=== PATIENT | female | born 1985 ===

== ENCOUNTER 2020-08-22 12:55 | Outpatient (REF) | payer BC, SELFPAY ==
--- NOTE | ~2020-08-22 | US_ITS ---
EXAMINATION: US DIAGNOSTIC ULTRASOUND BREAST, RIGHT CLINICAL INFORMATION: Mastodynia. COMPARISON: Mammography of same day. TECHNIQUE: Ultrasound of the breast is performed with real-time mar scale imaging and color Doppler. FINDINGS: There is no focal suspicious finding. There is no solid mass, architectural abnormality, duct ectasia, or edema in the soft tissue planes. Results are discussed with the patient at time of visit. US/US breast RT limited IMPRESSION: No suspicious ultrasound findings of the right breast. ASSESSMENT: BI-RADS 1: Negative RECOMMENDATION: Clinical follow-up This patient's information was entered into a reminder system with a target due date for their next mammogram.
--- NOTE | ~2020-08-22 | MM_ITS ---
EXAMINATION: MM DIAGNOSTIC DIGITAL BREAST TOMOSYNTHESIS, BILATERAL CLINICAL INFORMATION: Mastodynia right breast The lifetime risk of breast cancer based on the Tyrer-Cuzick Model is 10.1%. COMPARISON: Mammography: None TECHNIQUE: Digital breast tomosynthesis is performed in both the craniocaudal and mediolateral oblique views along with computer-aided detection (CAD). Synthesized 2D images are generated from the tomosynthesis. Spot compression right mediolateral view also performed. FINDINGS: There are scattered areas of fibroglandular density (ACR BI-RADS breast composition Category b). There are no significant masses, abnormal calcifications, or other abnormalities. Targeted right breast ultrasound was performed. No abnormal cystic or solid mass was identified. No region of abnormal distal sound shadowing. No edematous change within the parenchyma is seen. Results are provided to the patient at time of visit by the technologist. MM/MM tomosynthesis diagnostic BI IMPRESSION: No specific mammographic or ultrasound findings to suggest malignancy. ASSESSMENT: BI-RADS 1: Negative RECOMMENDATION: Clinical management and follow-up. This patient's information was entered into a reminder system with a target due date for their next mammogram.
== END 2020-08-22 12:56 | disposition home or self-care (01) ==
LOC: HO.MAMMO 12:55
PROVIDERS: PCP Internal Medicine; Visit Provider Internal Medicine
DX: N64.4 Mastodynia (principal)
CPT/HCPCS: 76642; 77062; 77066

== ENCOUNTER 2024-04-26 13:00 | Outpatient (AMB) | payer BC, SELFPAY ==
[2024-04-26 13:02] VITALS: BP 110/76; BMI 29.1
--- NOTE | 2024-04-26 13:02 | MHC.PC.OV ---
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 Accompanied by: Self / Same As Patient Allergies mosquitos Allergy (Mild, Uncoded 04/26/24 13:11) Rash Medication List - Last Reconciled 04/26/24 by Kassie Osorio MD tirzepatide 2.5 mg subcut QWEEK Tobacco use date assessed: 04/26/24 Dental Screening Dental Screen Date: 04/26/24 Did you have a dental visit in the last 12 months?: Yes Did you have a dental problem in the last 6 months where you did not have access to dental care?: No Was dental information given to patient?: Patient has dentist HPI HPI Comments History of Present Illness Details This is a 38-year-old female that comes for her physical exam. Has not had a Pap smear in 4 years and will call for an appointment with OBGYN. No chest pain or shortness on breath. Has some anxiety due to work related issues. Complains of right foot pain that started after she went on vacation and fell. Still has pain in right 1st toe metatarsal. Will be referred to Podiatry and order an x-ray. [facility] Medical History (Updated 04/26/24 @ 13:27 by Kassie Osorio MD) Encounter for physical examination Obese Breast pain, right Surgical History Hx laparoscopic cholecystectomy History of surgery History of tonsillectomy History of section Family History (Updated 04/26/24 @ 13:17 by Kassie Osorio MD) Father Hypertension Mother No problems noted. Maternal Grandmother CVD (cardiovascular disease) CHF (congestive heart failure) Breast cancer, Onset Age: 68 Paternal Grandfather Cancer Social History (Updated 04/26/24 @ 13:18 by Kassie Osorio MD) Housing: House Alcohol intake: current Alcohol intake frequency: holidays/special occasions only Alcohol type: wine Patient Tobacco Use Status: Never used Tobacco e-Cigarette/Vaping Use: Never Used Second Hand Smoke Exposure: No Substance Use Type: Marijuana service: No Current occupational status: employed Current occupational exposures/hazards: No Cognitive needs: No Hearing needs: No Vision needs: No Questionnaire PHQ-9 Over the last 2 weeks, how often have you been bothered by any of the following problems? 1. Little interest or pleasure in doing things: nearly every day 2. Feeling down, depressed, or hopeless: not at all 3. Trouble falling or staying asleep, or sleeping too much: not at all 4. Feeling tired or having little energy: not at all 5. Poor appetite or overeating: not at all 6. Feeling bad about yourself - or that you are a failure or have let yourself or your family down: not at all 7. Trouble concentrating on things, such as reading the newspaper or watching television: not at all 8. Moving or speaking so slowly that other people could have noticed. Or the opposite - being so fidgety or restless that you have been moving around a lot more than usual: not at all 9. Thoughts that you would be better off or of hurting yourself in some way: not at all Total score: 3 Depression Screening Interpretation: Negative Depression Screening Done: Yes 37559 - PHQ-9 Billing: Yes Source: Developed by Drs. Josue Canada, Nunu Lowe, Chris Kelley and colleagues, with an educational jeniffer from [employer]. Thrive Questionnaire Date Thrive assessed: 04/26/24 I am a: Patient What is your living situation today?: I have a steady place to live Within the past 12 months, did the food you bought not last and you didn't have the money to get more?: Never true Within the past 12 months, did you worry whether your food would run out before you got money to buy more?: Never true Do you have trouble paying for medicines?: No Do you have trouble getting transportation to medical appointments?: No Do you have trouble paying your heating and electricity bill?: No Do you have trouble taking care of your child, family member or friend?: No Do you have trouble with day-to-day activities such as bathing, preparing meals, shopping, managing finances, etc.?: No Are you currently unemployed and looking for a job?: No Are you interested in more education?: No Please select the resources that you would like help with: None Currently or been in a relationship where the following occur: No concerns reported THRIVE Score: 0 AUDIT C Alcohol Use Questionnaire (AUDIT-C) 1. How often do you have a drink containing alcohol?: 2-4 times a month 2. How many drinks containing alcohol do you have on a typical day when you are drinking?: 1 or 2 3. How often do you have six or more drinks on one occasion?: Never Total Score: 2 Score Reviewed/Action Taken: No TRENT-7 AMB Questionnaire TRENT-7 Date TRENT - 7 assessed: 04/26/24 Feeling nervous, anxious, or on edge: 1 = Several days Not being able to stop or control worryin = Several days Worrying too much about different things: 1 = Several days Trouble relaxin = Several days Being so restless that it is hard to sit still: 1 = Several days Becoming easily annoyed or irritable: 2 = More than half the days Feeling afraid as if something awful might happen: 1 = Several days Total TRENT-7 score (0-4 normal; 5-9 mild; 10-14 moderate; 15-21 severe): 8 Source: Developed by Drs. Josue Canada, Nunu Lowe, Chris Kelley and colleagues, with an educational jeniffer from [employer]. TRENT-7 Assessment Billing TRENT-7 Assessment Tool: TRENT-7 Assessment 52479 Review of Systems Const All systems reviewed & are unremarkable except as noted in HPI and below Card Denies chest pain at rest, Denies chest pain with activity, Denies edema, Denies irregular heart rhythm, Denies claudication, Denies dyspnea, Denies dyspnea on exertion, Denies orthopnea, Denies paroxysmal nocturnal dyspnea and Denies slow heart rate Resp Denies cough, Denies dyspnea and Denies dyspnea on exertion GI Denies abdominal pain, Denies change in bowel habits, Denies excessive flatus, Denies nausea and Denies vomiting Physical exam (Primary Care) Vital Signs: Last Vital Signs BP 110/76 04/26/24 13:02 BMI result Body Mass Index 29.1 Tobacco/Smoking Status: Tobacco use Status Tobacco use date assessed 04/26/24 04/26/24 13:07 Patient Tobacco Use Status Never used Tobacco 04/26/24 13:18 e-Cigarette/Vaping Use Never Used 04/26/24 13:18 PHQ-9: PHQ-9 Score PHQ-9: Total score 0 04/26/24 13:20 Depression Screening Interpretation: Negative Thrive Assessment: Date of Thrive Assessment Date Thrive assessed 04/26/24 04/26/24 13:07 Currently or been in a relationship where the following occur: No concerns reported [facility] Head: Yes normal to inspection, Yes normocephalic and Yes atraumatic Ears: external ears normal Eyes General: appearance normal, both eyes and all related structures Eyelids: Yes eyelids normal Conjunctivae: conjunctivae normal Neck Neck: Yes normal visual inspection and Yes supple Resp Effort & Inspection: normal respiratory effort Auscultation: clear to auscultation bilaterally Cardio Jugular venous distension: no JVD Rate: regular rate Rhythm: regular rhythm Heart sounds: S1 normal heart sound present and S2 normal heart sound present GI Inspection: Yes normal to inspection Palpation (GI): Soft to palpation and nontender Auscultation: normal bowel sounds Skin General skin exam: no rashes or lesions noted Neuro General: no focal motor deficits Extrem General: Yes full ROM Right lower extremity: foot Details: tenderness Location: of the great toe Location: at the MTP joint Psych Appearance: grossly normal Office Procedures Flu Questionnaire Does the patient have a severe egg allergy?: No Immunizations Fluarix Triv [id number] (PF) 45 mcg (15 mcg x 3)/0.5 mL IM syringe Performing Provider: Kassie Osorio MD [facility] Documented (not given) by: JERSEY Rose on 04/26/24 13:07 Reason Not Given: Patient Refused Coding Level of Care Code Est Pt Level 3 (02724) Est Pt Prev Care 18-39y(99474) Diagnoses Encounter for physical examination Z00.00 Right foot pain M79.671 Additional Codes TRENT-7 Assessment Billing - TRENT-7 Assessment Tool: TRENT-7 Assessment 48177 ([id number]) Time Spent (min) 33 Assessment & Plan Assessment & Plan (1) Encounter for physical examination: Code(s): Z00.00 - Encounter for general adult medical examination without abnormal findings Category: Medical Plan: Repeat in a year. (2) Right foot pain: Code(s): M79.671 - Pain in right foot Category: Medical Plan: X-ray ordered. Referred to Podiatry. Orders: Orders Influenza 2311-1612 Immunization Today Z23 - Encounter for immunization XR foot RT 2V Today M79.671 - Pain in right foot Lipid Panel Today E78.5 - Hyperlipidemia, unspecified, Z00.00 - Encounter for general adult medical examination without abnormal findings Comprehensive [place]. Panel Fast Today Z00.00 - Encounter for general adult medical examination without abnormal findings Referrals Podiatry Referral M79.671 - Pain in right foot
== END 2024-04-26 13:31 | disposition home or self-care (01) ==
PROVIDERS: PCP Internal Medicine; Visit Provider Internal Medicine
DX: Z00.00 Encounter for general adult medical examination without abnormal findings (principal); M79.671 Pain in right foot

== ENCOUNTER → 2024-04-26 13:00 | Outpatient (BNVA) | payer BC, SELFPAY | PROVIDERS: PCP Internal Medicine; Visit Provider Internal Medicine | DX: Z00.01 Encounter for general adult medical examination with abnormal findings (principal); M79.671 Pain in right foot; Z28.21 Immunization not carried out because of patient refusal | CPT/HCPCS: 90471; 96127 ==

== ENCOUNTER 2024-05-10 08:02 | Outpatient (REF) | payer BC, SELFPAY ==
--- NOTE | ~2024-05-10 | XR_ITS ---
EXAMINATION: XR FOOT, RIGHT CLINICAL INFORMATION: Right foot pain, first digit. COMPARISON: None available. TECHNIQUE: AP, lateral, and oblique views of the right foot. FINDINGS: No fracture, dislocation, or suspicious focal bone abnormality. Moderate hallux valgus present with mild prominence of the medial eminence of the first metatarsal head consistent with bunion formation. There is mild overlying soft tissue swelling suggestive of painful bunion. Remainder the bones of the forefoot, midfoot, and hindfoot are normally aligned with no acute finding. Small to moderate sized plantar and small dorsal calcaneal spurs. Normal plantar arch. Normal soft tissues otherwise. XR/XR foot RT 2V IMPRESSION: 1. Moderate hallux valgus with bunion formation and mild overlying soft tissue swelling first MTP joint. 2. Small to moderate plantar and small dorsal calcaneal spurs. 3. Otherwise, normal exam. Electronically signed by: Júnior Billingsley MD 06/01/2024 10:20 AM ROBIN
[2024-05-10 09:51] LABS: Alanine Aminotransferase 15 U/L (0-31); Albumin Level 4.5 g/dL (3.5-5.0); Alkaline Phosphatase 69 U/L (39-117); Anion Gap 11 (12-20); Aspartate Amino Transferase 19 U/L (5-31); Bilirubin Total 0.8 mg/dL (0.0-1.0); Blood Urea Nitrogen 11 mg/dL (9-16); Calcium 9.6 mg/dL (8.4-10.2); Carbon Dioxide 27 mmol/L (22-29); Chloride 106 mmol/L (96-108); Cholesterol 172 mg/dL (<200); Estimated Glomerular Filt Rate > 60; Glucose Fasting 80 mg/dL (60-99); HDL Cholesterol 54 mg/dL (>40); LDL Cholesterol Calculated 109 mg/dL (<100); Potassium 3.8 mmol/L (3.3-5.1); Sodium 140 mmol/L (135-145); Total Protein 7.1 g/dL (6.5-8.0); Triglycerides 45 mg/dL (<150)
== END 2024-05-10 08:03 | disposition home or self-care (01) ==
LOC: HO.XRAY 08:02
PROVIDERS: PCP Internal Medicine; Visit Provider Internal Medicine
DX: Z00.00 Encounter for general adult medical examination without abnormal findings (principal); E78.5 Hyperlipidemia, unspecified; M79.671 Pain in right foot
CPT/HCPCS: 36415; 73620; 80053; 80061

== ENCOUNTER → 2024-05-10 08:42 | Outpatient (BNV) | payer BC, SELFPAY | PROVIDERS: PCP Internal Medicine; Visit Provider Radiology Diagnostic Radiology | DX: M79.671 Pain in right foot (principal) | CPT/HCPCS: 73620 ==

== ENCOUNTER 2024-07-25 09:11 | Outpatient (AMB) | payer BC, SELFPAY ==
--- NOTE | 2024-07-25 09:13 | MHC.PC.OV ---
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 Required: No Accompanied by: Self / Same As Patient Allergies mosquitos Allergy (Mild, Uncoded 07/25/24 09:35) Rash Medication List - Last Reconciled 07/25/24 by Kassie Osorio MD tirzepatide 2.5 mg subcut QWEEK Tobacco use date assessed: 07/25/24 Dental Screening Dental Screen Date: 07/25/24 Did you have a dental visit in the last 12 months?: Yes Did you have a dental problem in the last 6 months where you did not have access to dental care?: No Was dental information given to patient?: Patient has dentist HPI HPI Comments History of Present Illness Details The patient is a 38-year-old female presenting with bilateral axillary lumps and breast pain. The patient reports experiencing soreness in the breast area for some time, which has gradually progressed. She attributes some of the discomfort to wearing sports bras consistently, even while sleeping, due to her active lifestyle and physical activities. The symptoms have been persistent, and the patient has noted the pain continues even when wearing different types of bras. While the pain has somewhat subsided with a new bra, it remains bothersome. The patient denies any nipple discharge but reports the presence of lumps under both armpits, which have been painful enough to prevent her from resting her arms at her sides. These lumps have been recurring, taking approximately two weeks to subside and often develop post-placement in the axillary region. A recent prior mammogram conducted in 2020 was reported as normal. The patient suspects her symptoms may be related to possibly an allergic reaction to an irritant, such as deodorant. Currently, the condition remains an inconvenience, impacting her overall comfort. 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 [facility] Medical History (Updated 07/25/24 @ 09:53 by Kassie Osorio MD) Encounter for physical examination Obese Breast pain, right Surgical History Hx laparoscopic cholecystectomy History of surgery History of tonsillectomy History of section Family History Father Hypertension Mother No problems noted. Maternal Grandmother CVD (cardiovascular disease) CHF (congestive heart failure) Breast cancer, Onset Age: 68 Paternal Grandfather Cancer Social History Housing: House Alcohol intake: current Alcohol intake frequency: holidays/special occasions only Alcohol type: wine Patient Tobacco Use Status: Never used Tobacco e-Cigarette/Vaping Use: Never Used Second Hand Smoke Exposure: No Substance Use Type: Marijuana service: No Current occupational status: employed Current occupational exposures/hazards: No Cognitive needs: No Hearing needs: No Vision needs: No Questionnaire PHQ-9 Over the last 2 weeks, how often have you been bothered by any of the following problems? 1. Little interest or pleasure in doing things: several days 2. Feeling down, depressed, or hopeless: not at all 3. Trouble falling or staying asleep, or sleeping too much: not at all 4. Feeling tired or having little energy: not at all 5. Poor appetite or overeating: not at all 6. Feeling bad about yourself - or that you are a failure or have let yourself or your family down: not at all 7. Trouble concentrating on things, such as reading the newspaper or watching television: not at all 8. Moving or speaking so slowly that other people could have noticed. Or the opposite - being so fidgety or restless that you have been moving around a lot more than usual: not at all 9. Thoughts that you would be better off or of hurting yourself in some way: not at all Total score: 1 Depression Screening Interpretation: Negative Depression Screening Done: Yes 43626 - PHQ-9 Billing: Yes Source: Developed by Drs. Josue Canada, Nunu Lowe, Chris Kelley and colleagues, with an educational jeniffer from [employer]. Thrive Questionnaire Date Thrive assessed: 07/25/24 I am a: Patient What is your living situation today?: I have a steady place to live Within the past 12 months, did the food you bought not last and you didn't have the money to get more?: Never true Within the past 12 months, did you worry whether your food would run out before you got money to buy more?: Never true Do you have trouble paying for medicines?: No Do you have trouble getting transportation to medical appointments?: No Do you have trouble paying your heating and electricity bill?: No Do you have trouble taking care of your child, family member or friend?: No Do you have trouble with day-to-day activities such as bathing, preparing meals, shopping, managing finances, etc.?: No Are you currently unemployed and looking for a job?: No Are you interested in more education?: No Please select the resources that you would like help with: None Currently or been in a relationship where the following occur: No concerns reported THRIVE Score: 0 AUDIT C Alcohol Use Questionnaire (AUDIT-C) 1. How often do you have a drink containing alcohol?: 2-4 times a month 2. How many drinks containing alcohol do you have on a typical day when you are drinking?: 1 or 2 3. How often do you have six or more drinks on one occasion?: Never Total Score: 2 Score Reviewed/Action Taken: No TRENT-7 AMB Questionnaire TRENT-7 Date TRENT - 7 assessed: 07/25/24 Feeling nervous, anxious, or on edge: 1 = Several days Not being able to stop or control worryin = Several days Worrying too much about different things: 1 = Several days Trouble relaxin = Several days Being so restless that it is hard to sit still: 1 = Several days Becoming easily annoyed or irritable: 1 = Several days Feeling afraid as if something awful might happen: 1 = Several days Total TRENT-7 score (0-4 normal; 5-9 mild; 10-14 moderate; 15-21 severe): 7 Source: Developed by Drs. Josue Canada, Nunu Lowe, Chris Kelley and colleagues, with an educational jeniffer from [employer]. TRENT-7 Assessment Billing TRENT-7 Assessment Tool: TRENT-7 Assessment 18973 Review of Systems Const Details: - Breast: Reports persistent soreness and pain. - Skin: Reports bilateral axillary lumps and associated pain. - General: Denies current use of tobacco. Physical exam (Primary Care) Vital Signs: Last Vital Signs BP 110/72 07/25/24 09:14 BMI result Body Mass Index 29.3 Tobacco/Smoking Status: Tobacco use Status Tobacco use date assessed 07/25/24 07/25/24 09:21 Patient Tobacco Use Status Never used Tobacco 07/25/24 09:14 e-Cigarette/Vaping Use Never Used 07/25/24 09:14 PHQ-9: PHQ-9 Score PHQ-9: Total score 1 07/25/24 09:37 Depression Screening Interpretation: Negative Thrive Assessment: Date of Thrive Assessment Date Thrive assessed 07/25/24 07/25/24 09:14 Currently or been in a relationship where the following occur: No concerns reported Const Other: General: No confusion Chest: Right axillary mass at 11 o'clock Respiratory: Normal respiratory effort, clear to auscultation bilaterally Cardiovascular: No jugular venous distension, regular rate, regular rhythm, S1 normal heart sound present and S2 normal heart sound present Extremities: Full ROM Psychology: Grossly normal Coding Level of Care Code Est Pt Level 3 (73890) Complex EM visit Add On G2211 Diagnoses Mass of axillary tail of right breast N63.31 Additional Codes TRENT-7 Assessment Billing - TRENT-7 Assessment Tool: TRENT-7 Assessment 91312 ([id number]) PHQ-9 - 18388 - PHQ-9 Billing: Yes ([id number]) Time Spent (min) 19 Assessment & Plan Assessment & Plan (1) Mass of axillary tail of right breast: Code(s): N63.31 - Unspecified lump in axillary tail of the right breast Category: Medical Plan - Discuss differential diagnoses for axillary lumps, including benign causes such as lymphadenopathy versus possible allergic or irritant reactions. - Recommend monitoring lumps for significant changes in size, consistency, or duration. - Consider potential irritants such as deodorants or fabrics; suggest a trial of hypoallergenic products and monitor reaction. - Follow up with additional imaging or specialist referral if lumps persist or new symptoms develop, despite lifestyle adjustments. Patient was informed and verbally consented to the use of an ambient scribe for clinic note documentation during this visit. We discussed the patient's symptoms of breast pain and axillary lumps at length. I provided reassurance regarding the normal mammogram result from 2020. We reviewed the potential causes of the axillary lumps, emphasizing common benign causes, and agreed on trying hypoallergenic deodorant as a preventative measure. I advised monitoring the lumps and breast pain and explained the importance of follow-up if symptoms persist or worsen. The patient understands the current plan and the need for further evaluation if significant changes occur. Orders: Orders US breast RT complete Today N63.31 - Unspecified lump in axillary tail of the right breast MM diagnostic mammo BI Today N63.31 - Unspecified lump in axillary tail of the right breast Patient Instructions: - Monitor symptoms and lumps for changes in size or pain. - Consider hypoallergenic deodorant to reduce potential irritation. - Wear supportive bras that alleviate pressure and discomfort. - Contact the office if symptoms worsen or new symptoms arise. - Schedule regular follow-ups as needed to review symptoms and adjust the plan. - Report any lumps that do not resolve or if there is new nipple discharge.
[2024-07-25 09:14] VITALS: BP 110/72; BMI 29.3
== END 2024-07-25 09:53 | disposition home or self-care (01) ==
PROVIDERS: PCP Internal Medicine; Visit Provider Internal Medicine
DX: N63.31 Unspecified lump in axillary tail of the right breast (principal)

== ENCOUNTER → 2024-07-25 09:11 | Outpatient (BNVA) | payer BC, SELFPAY | PROVIDERS: PCP Internal Medicine; Visit Provider Internal Medicine | DX: N63.31 Unspecified lump in axillary tail of the right breast (principal) | CPT/HCPCS: 96127 ==

== ENCOUNTER 2024-08-30 10:02 | Outpatient (REF) | payer BC, SELFPAY ==
--- OUTSIDE RECORDS SUMMARY | 2024-08-30 13:38 | XMS_ITS | Clinical Summary ---
Author Organization [facility] Address [address] [place] [phone] Phone Care Team Providers Care Records Assistant Name Role Phone Unavailable Primary Care Provider [...] of 2 - 13+ 2-dose series) 12/06/2000 DTaP,Tdap,and Td Vaccines (8 - Td or [...]
--- OUTSIDE RECORDS SUMMARY | 2024-08-30 13:38 | XMS_ITS | Clinical Summary ---
Author Organization 175 [facility] Address [address] [place] [address] Phone Care Team Providers Care Bend Up Name Role Phone Kassie Osorio MD Primary Care Provider [phone] Social History Tobacco Use Types Packs/Day Years Used Date Smoking Tobacco: Never Assessed Comments Unknown Sex and Gender Information Value Date Recorded Sex Assigned at Not on file Legal Sex Female 4:48 PM EST Gender Identity Not on file Sexual Orientation Not on file Plan of Treatment Upcoming Encounters Date Type Department Care Team ([facility] Contact Info) Description 08/31/2024 10:30 AM EST Office Visit Orthopedic Surgery [place] [phone] [phone] Lebron Zaldivar, DPM [address] [address] Health Maintenance Due Date Last Done Comments [...] patient's age to complete this topic Insurance [facility]) Care Teams Bend Up Relationship Specialty Start Date End Date Kassie Osorio MD [address] [place] [address] , [address] [facility] Physician Associ D/B/A: [facility] [place] PCP - General Internal Medicine 06/06/24
--- OUTSIDE RECORDS SUMMARY | 2024-08-30 13:38 | XMS_ITS | Encounter Summary ---
Author Organization [facility] Address [address] [place] [phone] Phone Care Team Providers Care Rice Farmworker Name Role Phone Mamie Hewitt NP Primary Care Provider Paty johnston Encounter Details Date Type Department Care Team (Late st Contact Info) Description 03/04/2017 Conversion Encounter [facility] - [address] [address] Social History Tobacco Use Types Packs/Day Years [...] on filedocumented in this encounter Care Teams Rice Farmworker Relationship Specialty Start Date End Date Mamie Hewitt NP PCP - General 02/26/17 10/27/22 documented as of this encounter
[2024-08-30 17:59] LABS: Bacterial Vaginosis PCR NEGATIVE (Negative); Candida Group PCR NOT DETECTED (Not Detect); Candida glab krusei PCR NOT DETECTED (Not Detect); Trichomonas vaginalis PCR NOT DETECTED (Not Detect)
[2024-08-31 06:48] LABS: CT PCR NOT DETECTED (Not Detect.); NG PCR NOT DETECTED (Not Detect.)
== END 2024-08-30 10:03 | disposition home or self-care (01) ==
LOC: HO.LNP 10:02
PROVIDERS: PCP Internal Medicine; Visit Provider Physician Assistant
DX: N89.8 Other specified noninflammatory disorders of vagina (principal)
CPT/HCPCS: 81515; 87491; 87591

== ENCOUNTER 2024-08-30 10:02 | Outpatient (AMB) | payer BC, SELFPAY ==
[2024-08-30 10:19] VITALS: BP 122/80; PULSE 105; O2SAT 95; BMI 30.7
--- NOTE | 2024-08-30 10:19 | MHC.OFFWIV ---
Intake Vital Signs 08/30/24 10:19 Height 5 ft 10 in Weight 214 lb BMI 30.7 BP 122/80 Blood Pressure Location Lt brachial Position Sitting Pulse 105 H Pulse Source Pulse Oximeter Pulse Oximetry (%) 95 Oxygen Delivery Method Room Air Intake Visit Reasons: EP IUD shift?? Intake Note: Patient here for IUD that has shifted. She states it is out and needs it to be taken out but does not have a OBGYN at the moment. Patient Tobacco Use Status: Never used Tobacco Allergies mosquitos Allergy (Mild, Uncoded 08/30/24 10:33) Rash Do you need a note to return to daycare/school/sports/work: No HPI HPI Comments History of Present Illness Details Pt is a 38yo F who presents for IUD check She does not have OBGYN She states inserted IUD in 2019 She tried to call OBGYN because she was not seen in 2 years Thinks it is falling out and would like it removed Seen at last week due to pelvic pressure and lower back pain; SHe said they said no urine infection but maybe was IUD She said last night when she went to wipe she felt like she pulled something and felt a lot of pain in stomach She said she thinks she sees a string coming out and has not touched it since She said urine was negative lst week Minimal lower abdominal ache now that is improved from last week Staying hydrated [facility] Medical History Encounter for physical examination Obese Breast pain, right Surgical History Hx laparoscopic cholecystectomy History of surgery History of tonsillectomy History of section Family History Father Hypertension Mother No problems noted. Maternal Grandmother CVD (cardiovascular disease) CHF (congestive heart failure) Breast cancer, Onset Age: 68 Paternal Grandfather Cancer Social History Housing: House Alcohol intake: current Alcohol intake frequency: holidays/special occasions only Alcohol type: wine Patient Tobacco Use Status: Never used Tobacco e-Cigarette/Vaping Use: Never Used Second Hand Smoke Exposure: No Substance Use Type: Marijuana service: No Current occupational status: employed Current occupational exposures/hazards: No Cognitive needs: No Hearing needs: No Vision needs: No Review of Systems Const Denies chills and Denies fever(s) Card Denies chest pain Resp Denies cough GI Denies diarrhea and Denies vomiting Denies hematuria, Denies dysuria, Reports pelvic pain and Reports other (IUD string exposure from vagina) Musc Reports back pain Skin/Breast Denies rash Physical Exam Vital Signs: Last Vital Signs Pulse 105 H 08/30/24 10:19 BP 122/80 08/30/24 10:19 Pulse Ox 95 08/30/24 10:19 Oxygen Delivery Method Room Air 08/30/24 10:19 BMI result Body Mass Index 30.7 General: Non-toxic, NAD. Speaking full sentences. Skin: Warm dry throughout Eye: EOMI Respiratory: No respiratory distress or stridor Cardiac: Regular rate Abdominal: No distention. Non-tender to light and deep palpation : From externa vagina there is noted 2 dark purple/blue strings from canal. No external genitalia edema or rashes. Speculum exam reveals a closed cervical os with 2 strings coming from central os. There is copius amounts of white/yellow vaginal discharge in vault which for which large cotton swab applicators used to remove for proper os inspection. No bleeding but slight irritation to anterior cervix to R of os. No other aspects of IUD exposed. No other vaginal foreign bodies noted. Neurology: Alert. No aphasia or facial droop. Gait without abnormality Psych: Good mood and affect Assessment & Plan Assessment & Plan (1) Vaginal discharge: Code(s): N89.8 - Other specified noninflammatory disorders of vagina Plan: Pt had urine and hcg completed last week which were negative On pelvic exam due to discharge, GC/Chalmydia and BV swabs ordered and obtained (2) Pelvic pain: Code(s): R10.2 - Pelvic and perineal pain Plan: No acute abdomen on exam There is no sign of IUD exposed from os but it is very abnormal to see this long of strings being exposed from external vagina. Discussed with pt it is assumed that she has misplaced IUD due to the strings being exposed that far. Non-toxic abdomen but discussed perforation of uterus and s/s that warrant ER evaluation I called [facility] where pt was seen previously and they said since she was a new patient we had a few options. With my referral she can be seen in 4 weeks, with ER referral she can be seen in 2 weeks and other option is for her to go to [facility] to be seen. I gave pt all options and she is going to try to go to [facility]. I sent message to her PCP for possible US order. (3) IUD complication: Code(s): T83.9XXA - Unspecified complication of genitourinary prosthetic device, implant and graft, initial encounter Qualifiers: Device complication type: unspecified Encounter type: initial encounter Qualified Code(s): T83.9XXA - Unspecified complication of genitourinary prosthetic device, implant and graft, initial encounter Plan: See above Orders: Orders Bacterial Vaginosis Panel Today N89.8 - Other specified noninflammatory disorders of vagina CT NG by PCR Today N89.8 - Other specified noninflammatory disorders of vagina Coding Level of Care Code Est Pt Level 3 (53184) Diagnoses Vaginal discharge N89.8 Pelvic pain R10.2 Complication of intrauterine device (IUD), unspecified complication, initial encounter T83.9XXA Device complication type: unspecified Encounter type: initial encounter
--- OUTSIDE RECORDS SUMMARY | 2024-08-30 11:49 | XMS_ITS | Encounter Summary ---
Author Organization [facility] Address [address] [place] [phone] Phone Care Team Providers Care Quality Auditor Name Role Phone Mamie Hewitt NP Primary Care Provider Paty johnston Encounter Details Date Type Department Care Team (Late st Contact Info) Description 03/04/2017 Conversion Encounter [facility] - [address] [address] Social History Tobacco Use Types Packs/Day Years Used Date Smoking Tobacco: Never Assessed Comments Unknown Sex and Gender Information Value Date Recorded Sex Assigned at Not on file Legal Sex Female 4:25 PM EDT Gender Identity Not on file Sexual Orientation Not on file documented as of this encounter Plan of Treatment Not on file documented as of this encounter Visit Diagnoses Not on filedocumented in this encounter Care Teams Quality Auditor Relationship Specialty Start Date End Date Mamie Hewitt NP PCP - General 02/26/17 10/27/22 documented as of this encounter
--- OUTSIDE RECORDS SUMMARY | 2024-08-30 11:50 | XMS_ITS | Clinical Summary ---
Author Organization [facility] Address [address] [place] [address] Phone Care Team Providers Care Retail Banker Name Role Phone Unavailable Primary Care Provider Unavailabl e Immunizations Immunization Administration Dates Next Due DTP 08/18/1998, 3,08/18/1989,04/14,02/13/1988 HPV, Quadrivalent 10/03/2007,02/17/2007,12/09/19 07 Hep B, ped/adol 10/20/1999,06/23/1999,05/26/1999 Hib (PRP-T) 02/15/1990 IPV 12/16/1992, 0,04/14/1988,02/12 MMR 12/05/1998,08/18/1989 Meningococcal Conj (Menactra) MCV4P 12/08/2006 Td (adult) (MBL), 2 Lf tetan us toxoid, PF, adsorbed 01/01/2000 Tdap 12/08/2006 Family History Relation Name Status Comments Mother Alive Mother: Alive a nd well Other Family history of Asthma Social History Tobacco Use Types Packs/Day Years Used Date Smoking Tobacco: Never Assessed Comments Unknown Sex and Gender Information Value Date Recorded Sex Assigned at Not on file Legal Sex Female 4:25 PM EDT Gender Identity Not on file Sexual Orientation Not on file Plan of Treatment Health Maintenance Due Date Last Done Comments Varicella Vaccines (1 of 2 - 13+ 2-dose series) 12/06/2000 Consider Men B Vaccine (1 of 2 - Bexsero 2-dose series) 2003 DTaP,Tdap,and Td Vaccines (8 - Td or Tdap) 12/08/2016 12/08/2006, 01/01/2000, 08/18/1998, Additional history exists Influenza Vaccines (#1) 2024 COVID-19 Vaccine ( season) 2024 HIB Vaccines Completed 02/15/1990 IPV Vaccines Completed 12/16/1992, 07/21, 04/14/1988, Additional history exists MMR Vaccines Completed 12/05/1998, 08/18/1989 Hepatitis B Vaccines Completed 10/20/1999, 06/23/1999, 05/26/1999 Meningococcal Vaccine Aged Out 12/08/2006 No roselyn ana eligible based on patient's age to complete this topic HPV Vaccines Completed 10/03/2007, 08/2006, 12/08/2006 Hepatitis A Vaccines Aged Out No long er eligible based on patient's age to complete this topic Men B Vaccine Aged Out No longer elig ible based on patient's age to complete this topic Pneumococcal Vaccine Aged Out No long er eligible based on patient's age to complete this topic
--- OUTSIDE RECORDS SUMMARY | 2024-08-30 11:50 | XMS_ITS | Clinical Summary ---
Author Organization [facility] Address [address] [place] [address] Phone Care Team Providers Care Dairy Husbandman Name Role Phone Kassie Osorio MD Primary Care Provider [phone] Social History Tobacco Use Types Packs/Day Years Used Date Smoking Tobacco: Never Assessed Comments Unknown Sex and Gender Information Value Date Recorded Sex Assigned at Not on file Legal Sex Female 4:48 PM EST Gender Identity Not on file Sexual Orientation Not on file Plan of Treatment Upcoming Encounters Date Type Department Care Team ([facility] Contact Info) Description 08/31/2024 10:30 AM EST Office Visit Orthopedic Surgery [place] [phone] [phone] Lebron Zaldivar, DPM [address] [address] Health Maintenance Due Date Last Done Comments DTaP,Tdap,and Td Vaccines (1 - Tdap) 12/06/2006 Hepatitis B Vaccines (1 of 3 - 19+ 3-dose series) 12/06/2006 Cervical Cancer Screening: P ap Smear 12/06/2008 COVID-19 Vaccine ( - 2023-2 5 season) 2024 Influenza Vaccine (#1) 2024 Depression Screening 06/07/2024 HIV Screening 06/07/2024 Hepatitis C Screening 06/07/2024 Social Influencers of Health Screening 06/07/2024 HIB Vaccines Aged Out No longer eligi ble based on patient's age to complete this topic HPV Vaccines Aged Out No longer eligi ble based on patient's age to complete this topic Hepatitis A Vaccines Aged Out No long er eligible based on patient's age to complete this topic IPV Vaccines Aged Out No longer eligi ble based on patient's age to complete this topic MMR Vaccines Aged Out No longer eligi ble based on patient's age to complete this topic Meningococcal ACWY Vaccine Aged Out N o longer eligible based on patient's age to complete this topic Meningococcal B Vacine Aged Out No lo nger eligible based on patient's age to complete this topic Pneumococcal Vaccine: Pediat rics (0 to 5 Years) and At-Risk Patients (6 to 64 Years) Aged Out No longer eligible b ased on patient's age to complete this topic RSV Immunization Patients Un hellen 20 months Aged Out No longer eligible b ased on patient's age to complete this topic Varicella Vaccines Aged Out No longer eligible based on patient's age to complete this topic Insurance [facility]) Care Teams Dairy Husbandman Relationship Specialty Start Date End Date Kassie Osorio MD [address] [place] [address] , [address] [facility] Physician Associ D/B/A: [facility] [place] PCP - General Internal Medicine 06/06/24
== END 2024-08-30 11:19 | disposition home or self-care (01) ==
PROVIDERS: PCP Internal Medicine; Visit Provider Physician Assistant
DX: N89.8 Other specified noninflammatory disorders of vagina (principal); R10.2 Pelvic and perineal pain; T83.9XXA Unspecified complication of genitourinary prosthetic device, implant and graft, initial encounter

== ENCOUNTER 2024-09-11 08:06 | Outpatient (REF) | payer BC, SELFPAY ==
--- NOTE | ~2024-09-11 | US_ITS ---
EXAMINATION: MM DIAGNOSTIC DIGITAL BREAST TOMOSYNTHESIS, BILATERAL Bilateral Limited ultrasound. CLINICAL INFORMATION: Bilateral breast pain. Right palpable breast lump. 38-year-old female. COMPARISON: Mammography: Comparison is made with relevant prior exams. TECHNIQUE: Digital breast mammography with tomosynthesis is performed in both the craniocaudal and mediolateral oblique views along with computer-aided detection (CAD). Bilateral Limited ultrasound. FINDINGS: The breasts are heterogeneously dense, which may obscure small masses (ACR BI-RADS breast composition Category c). Left: No suspicious masses calcifications or other abnormal findings. Targeted color Doppler ultrasound scanning in the left axilla area of patient's pain demonstrates normal fibronodular breast tissue. Targeted color Doppler ultrasound scanning in the upper outer quadrant area of patient's pain demonstrates normal fibronodular breast tissue. Right: No suspicious masses calcifications or other abnormal findings. Targeted color Doppler ultrasound scanning in the area the patient's palpable lump and pain in the right axilla demonstrates normal fibronodular breast tissue. Targeted color Doppler ultrasound scanning in the upper outer quadrant demonstrates normal fibroglandular breast tissue. Results are provided to the patient at time of visit by the technologist. US/US breast RT limited mamm only IMPRESSION: No mammographic or sonographic abnormalities bilateral breasts to account for the patient's bilateral breast pain and right palpable lump. Recommend clinical evaluation and follow-up. ASSESSMENT: BI-RADS BI-RADS 1 - Negative RECOMMENDATION: 1 year F/U This patient's information was entered into a reminder system with a target due date for their next mammogram. Electronically signed by: Cori Hampton DO 09/11/2024 09:33 AM ROBIN RICE
--- OUTSIDE RECORDS SUMMARY | 2024-09-11 08:09 | XMS_ITS | Clinical Summary ---
Author Organization 175 [facility] Address [address] [place] [address] Phone Care Team Providers Care Assistant Drafter Name Role Phone Kassie Osorio MD Primary Care Provider [phone] Medications diclofenac (Voltaren Arthritis Pain) 1 % topical gel Apply 4 g topically 2 (two) times a day. 240 g 1 5 10/31/19 25 Active Encounters Date Type Department Care Team Description 08/31/2024 10:30 AM EST Office Visit Orthopedic [facility] [address] [phone] Lebron Zaldivar DPM Acquired hallux valgus of right foot (Primary Dx); Right foot pain from Last 3 Months Social History Tobacco Use Types Packs/Day Years Used Date Smoking Tobacco: Never Assessed Comments Unknown Sex and Gender Information Value Date Recorded Sex Assigned at Not on file Legal Sex Female 4:48 PM EST Gender Identity Not on file Sexual Orientation Not on file Last Filed Vital Signs Vital Sign Reading Time Taken Comments Blood Pressure - - Pulse - - Temperature - - Respiratory Rate - - Oxygen Saturation - - Inhaled Oxygen Concentration - - Weight 93 kg (205 lb) 08/31/2024 10:26 AM EST Height 177.8 cm (5' 10 ) 08/31/2024 10:26 AM EST Body Mass Index 29.41 08/31/2024 10:26 AM EST Plan of Treatment Upcoming Encounters Date Type Department Care Team ([facility] st Contact Info) Description 10/09/2024 3:45 PM EDT Office Visit [facility] [address] [phone] Lebron Zaldivar DPM [address] [facility] [address] [place] [address] Health Maintenance Due Date Last Done Comments Cervical Cancer Screening: Pap Smear 12/06/2008 DTaP,Tdap,and Td Vaccines (8 - Td or Tdap) 12/08/2016 12/08/2006, 01/01/2000, 08/18/1998, Additional history exists COVID-19 Vaccine () 03/19/2024 Influenza Vaccine (#1) 2024 Depression Screening 06/07/2024 HIV Screening 06/07/2024 Hepatitis C Screening 06/07/2024 Social Influencers of Health Screening 06/07/2024 HIB Vaccines Completed 02/15/1990 IPV Vaccines Completed 12/16/1992, 07/21, 04/14/1988, Additional history exists MMR Vaccines Completed 12/05/1998, 08/18/1989 Hepatitis B Vaccines Completed 10/20/1999, 06/23/1999, 05/26/1999 Meningococcal ACWY Vaccine Aged Out 12/08/2006 N o longer eligible based on patient's age to complete this topic HPV Vaccines Completed 10/03/2007, 08/2006, 12/08/2006 Hepatitis A Vaccines Aged Out No long er eligible based on patient's age to complete this topic Meningococcal B Vacine Aged Out No lo nger eligible based on patient's age to complete this topic Pneumococcal Vaccine: Pediatrics (0 to 5 Years) and At-Risk Patients (6 to 64 Years) Aged Out No longer eligible based on patient's age to complete this topic RSV Immunization Patients Under 20 months Aged Out No longer eligible based on patient's age to complete this topic Varicella Vaccines Aged Out No longer eligible based on patient's age to complete this topic Insurance [facility]) Care Teams Assistant Drafter Relationship Specialty Start Date End Date Kassie Osorio MD [facility] , [address] [place] [address] Physician Associ D/B/A: [facility] [place], [place] PCP - General Internal Medicine 06/06/24
--- OUTSIDE RECORDS SUMMARY | 2024-09-11 08:09 | XMS_ITS | Encounter Summary ---
Author Organization [facility] Address [address] [place] [address] Phone Care Team Providers Care Workers Compensation Defense Attorney Name Role Phone Mamie Hewitt NP Primary Care Provider Paty johnston Encounter Details Date Type Department Care Team (Late st Contact Info) Description 03/04/2017 Conversion Encounter [facility] - [address] [address] Social History Tobacco Use Types Packs/Day Years [...] on filedocumented in this encounter Care Teams Workers Compensation Defense Attorney Relationship Specialty Start Date End Date Mamie Hewitt NP PCP - General 02/26/17 10/27/22 documented as of this encounter
--- OUTSIDE RECORDS SUMMARY | 2024-09-11 08:09 | XMS_ITS | Clinical Summary ---
Author Organization [facility] Address [address] [place] [phone] Phone Care Team Providers Care Pedicurist Name Role Phone Unavailable Primary Care Provider [...]
--- OUTSIDE RECORDS SUMMARY | 2024-09-11 08:09 | XMS_ITS | Encounter Summary ---
Author Organization [facility] Address [address] [place] [address] Care Team Providers Care Floor Nurse Name Role Phone Kassie Osorio MD Primary Care Provider [phone] Reason for Visit * Reason Comments Consult Right foot pain * Orthopedic (Routine) - Closed Specialty Diagnoses / Procedures Referred By Contact Referred To Contact Podiatry / Orthopaedic Surgery Diagnoses Pain in right foot Procedures AMB Referral to Podiatry. Kassie Osorio MD [address] [place] [address] [address], [address] [facility] D/B/A: [facility] [place], [place] Phone: tel: fax: Orthopedic Surgery [facility] [address] [address] Phone: tel: fax: Referral ID Status Reason Start Date Expiration Date V isits Requested Visits Authorized [id number] Closed Consult and Treat 06/06/2024 06/06/2025 1 1 Encounter Details Date Type Department Care Team (Late st Contact Info) Description 08/31/2024 10:30 AM EST Office Visit Orthopedic Surgery [facility] [address] [address] Lebron Zaldivar, DPM [address] [address] Acquired hallux valgus of right foot (Primary Dx); Right foot pain Social History Tobacco Use Types Packs/Day Years Used Date Smoking Tobacco: Never Assessed Comments Unknown Sex and Gender Information Value Date Recorded Sex Assigned at Not on file Legal Sex Female 4:48 PM EST Gender Identity Not on file Sexual Orientation Not on file documented as of this encounter Last Filed Vital Signs Vital Sign Reading Time Taken Comments Blood Pressure - - Pulse - - Temperature - - Respiratory Rate - - Oxygen Saturation - - Inhaled Oxygen Concentration - - Weight 93 kg (205 lb) 08/31/2024 10:26 AM EST Height 177.8 cm (5' 10 ) 08/31/2024 10:26 AM EST Body Mass Index 29.41 08/31/2024 10:26 AM EST documented in this encounter Ordered Prescriptions Prescription Sig Dispense Quantity Refills Last Filled Start Date End Date diclofenac (Voltaren Arthritis Pain) 1 % topical gel Apply 4 g topically 2 (two) times a day. 240 g 1 08/31/2024 documented in this encounter Progress Notes * Lebron Zaldivar DPM - 08/31/2024 10:30 AM EST Last PCP visit:Referring MD: Kassie Osorio MD IDENTIFIER: Derrell is a 38 y.o. year old female who presents for consultation. CC: Foot pain HPI: Location rightfoot, Symptoms sharp dull burning achy, Severity 7/10 sandra visual analog scale. Duration of 1 6 months hurt it in [place] Worse with activity morning night. Improve without activity morning night. Denies trauma just woke up with it, Modifying factors stopping activiities changing shoes, associated symptoms walking different cannot lunge with worsening bunion right foot and left foot ROS: GENERAL: Pt denies nausea, fever, vomiting, chills, or shortness of breath. Pt in NAD. CARDIOLOGY: pt denies chest pain, palpitations LUNGS: pt denies shortness of breath MUSCULOSKELETAL: See HPI, otherwise no joint pain or swelling, back pain, or muscle pain. SKIN: see HPI, otherwise no lesions, rash or itching NEURO: No persistent headache, weakness or numbness The remainder of the review of systems is noncontributory PAST MEDICAL HISTORY: There is no problem list on file for this patient. SOCIAL HISTORY: Social History Tobacco Use Smoking status: Not on file Smokeless tobacco: Not on file Substance Use Topics Alcohol use: Not on file ACTIVE MEDICATIONS: No outpatient medications have been marked as taking for the 08/31/24 encounter (Office Visit) with Lebron Zaldivar DPM. ALLERGIES: Not on File PHYSICAL EXAM: Visit Vitals Ht 1.778 m (70 ) Wt 93 kg (205 lb) BMI 29.41 kg/m?? BSA 2.11 m?? PODIATRIC EXAMINATION: GENERAL: Patient appears well nourished, with NAD. VASCULAR: Dorsalis pedis pulses are 2/4 bilaterally and Posterior tibial pulses are 2/4 bilaterally. Capillary filling time within normal limits the digits. No pallor on elevation or rubor on dependency. No varicosities. Denies rest pain or claudication pain. NEUROLOGICAL: Sharp/dull sensation intact, protective sensation intact 10/10 with 5.07 semmes may bilaterally, vibratory sensation with tuning fork intact to the tibial tuberosity. ORTHOPEDIC: Good muscle strength 5/5 of all flexors and extensors. Dorsi flexion of ankle ,10 degrees, plantar flexion WNL. No muscle atrophy. DERMATOLOGICAL:.No masses or skin lesions noted. Normal skin temperature, normal skin turgor. BIOMECHANICS: Ankle ROM WNL, STJ ROM wnl, MTJ ROM wnl, 1st MPJ ROM severe bunion bilateral hyper mobility 1st metatarsal cuneiform joint . IMAGING: IMPRESSION: 1. Acquired hallux valgus of right foot 2. Right foot pain PLAN: Pt was seen and examined, history reviewed. Xrays taken reviewed with patient in detail discussed different bunion procedures below During today???s visit we discussed at great length the etiology, prognosis, and treatment options for the patient???s condition. Risks and benefits of operative and non operative treatment options were discussed. Treatment options for lapidus bunionectomy right foot correction were discussed, non-operative treatment would involve tapping, strapping, adjustments in shoe gear, orthotics insoles, rest, bracing and edema control. There is potential for the deformities to stabilize without surgery yet there may still be a need for delayed surgery and distructive procedures. There is potential for non-union with surgery and non-operative care would avoid incision problems and anesthesia risks. Surgery has added risks including but not limited to infection, incision pain, neuritis or numbness reoccurance of deformity, scar tissue contracture, worsening of deformity and loss of limb or life. lapidus bunionectomy right foot healing was discussed in relation to operative treatment. Recovery and post operative immobilization was discussed based on the various treatment options. A decision was made to pursue lapidus bunionectomy right foot surgery. Patient voices understandingof the risks and benefits and would like to proceed with surgery. Weight bearing status: NWB x 6 weeks followed by progressive WB x 10 weeks in a below the knee boot. Work&Activity restrictions: Impact of undergoing surgery to work and daily activity was discussed today Pain management: Postoperative pain regiment were discussed in great detail with the patient. The patient was also encouraged to aggressively elevate and ice postoperatively to help with swelling andpain control. The patient was in agreement with this plan. The patient will be prescribed IbuprofenTylenol Oxycodone for postoperative pain management. VTE Risk assessment: Risk of DVT/ PE were discussed in relation to immobilization, inactivity, injury, surgery, medication and personal risk factors. Signs and symptoms of a blood clot were discussedincluding action plan if the patient experiences these signs or symptoms. Methods of prevention and risk reduction were explained. Mechanical prophylaxis including ROM and mobilization is encouraged as much as possible. The patient???s risk for deep vein thrombosis was also assessed today. In regards to major risk factors they: Do not have personal history of DVT Do not have known active cancer Do not have known clotting disorder Do not have family history of DVT Pending foot surgery and current level of immobilization are risk factors. Measure taken to decrease their risk of deep vein thrombosis will consist of detailed education, as well as lower extremity range of motion. Chemical prophylaxis is not recommended based on patients history, procedure and postoperative plan. Planned procedure(s): lapidus bunionectomy right foot surgery WB status: NWB x 8 weeks followed by progressive WB x 10 weeks in a below the knee boot. Pain medication: Ibuprofen Tylenol Oxycodone Lebron Zaldivar DPM documented in this encounter Plan of Treatment Upcoming Encounters Date Type Department Care Team (Late st Contact Info) Description 10/09/2024 3:45 PM EDT Office Visit Orthopedic Surgery - [place] [address] [phone] Lebron Zaldivar DPM [address] [address] Pending Results Name Type Priority Associated Diagnoses Date /Time XR Foot 3+ Views Right Imaging Routine Right foot pain 08/31/2024 10:33 AM EST Scheduled Orders Name Type Priority Associated Diagnoses Orde r Schedule XR Foot 3+ Views Right Imaging Routine Right foot pain Expected: 08/31/2024, Expires: 08/31/2025 documented as of this encounter Visit Diagnoses Diagnosis Acquired hallux valgus of right foot- Primary Right foot pain Pain in soft tissues of limb documented in this encounter Care Teams Floor Nurse Relationship Specialty Start Date End Date Kassie Osorio MD [address] [facility] , [address] [facility] D[facility]A: [facility] TIFFANY Monzon PCP - General Internal Medicine 06/06/24 documented as of this encounter
== END 2024-09-11 08:07 | disposition home or self-care (01) ==
LOC: HO.MAMMO 08:06
PROVIDERS: PCP Internal Medicine; Visit Provider Internal Medicine
DX: N63.31 Unspecified lump in axillary tail of the right breast (principal)
CPT/HCPCS: 76642; 77062; 77066

== ENCOUNTER → 2024-09-11 08:45 | Outpatient (BNV) | payer BC, SELFPAY | PROVIDERS: PCP Internal Medicine; Visit Provider Internal Medicine | DX: N64.4 Mastodynia (principal); N63.10 Unspecified lump in the right breast, unspecified quadrant | CPT/HCPCS: 76642; 77062; 77066 ==

== ENCOUNTER 2024-10-02 13:30 | Outpatient (REF) | payer BC, SELFPAY ==
[2024-10-03 03:09] LABS: CT PCR NOT DETECTED (Not Detect.); NG PCR NOT DETECTED (Not Detect.)
[2024-10-03 10:54] LABS: Bacterial Vaginosis PCR NEGATIVE (Negative); Candida Group PCR NOT DETECTED (Not Detect); Candida glab krusei PCR NOT DETECTED (Not Detect); Trichomonas vaginalis PCR NOT DETECTED (Not Detect)
== END 2024-10-02 13:31 | disposition home or self-care (01) ==
LOC: HO.LNP 13:30
PROVIDERS: PCP Internal Medicine; Visit Provider Advanced Practice Midwife
DX: T83.9XXA Unspecified complication of genitourinary prosthetic device, implant and graft, initial encounter (principal)
CPT/HCPCS: 81515; 87491; 87591

== ENCOUNTER 2024-10-02 13:30 | Outpatient (AMB) | payer BC, SELFPAY ==
--- NOTE | 2024-10-02 13:31 | A.OFFVIS_ITS ---
Vital Signs 10/02/24 13:40 Height 5 ft 10 in Weight 214 lb BMI 30.7 BP 116/74 Intake Visit Reasons: pelvic pain/Internal Referral Intake Note: Per patient believes last pap smear was 2-3 years ago, normal. Has concerns of IUD being out of place, says string was hanging out and she went to walk in to make them aware they would not do anything so she cut string herself. Heating Operators Engineer: Heating Operators Engineer Present (Catie) Accompanied by: Self / Same As Patient Allergies mosquitos Allergy (Mild, Uncoded 08/30/24 10:33) Rash Medication List - Last Reconciled 10/02/24 by Felicia Sadler CNM tirzepatide 2.5 mg subcut QWEEK Is last menstrual period known: No Post menopausal: No Patient : No HPI HPI pelvic pain/Internal Referral: Details: Patient was referred here as she has an IUD which she thought was a ParaGard IUD inserted around 2019. She has not been getting her periods with this IUD. She says the IUDs served her fine until a couple of weeks ago when amongst other unusual symptoms she was having, 1 day she went to the bathroom and very long blue strings so out of her vagina. She sought care at urgent care. There was a long wait to get in for an appointment she did not think it was right to have the strings hanging out that much so she did cut them herself. She is not having any pain or any issue at all she had sex Wednesday night and it felt fine, she has no concerns whatsoever about infection as she is monogamous with her since 2007. She feels sure that the IUD was placed by the midwifery group on [facility] on the 2nd floor of the [facility]. She thought it was a ParaGard however. She said she had had a Mirena in the past. She had no problems with it until the strings fell out. She was checked at urgent care and the assessment was that it seemed to be in place there was no body of the IUD extruding from the os. If it needs to be replaced she is interested in replacing it she does not think she has had a regular yoke presser visits since the pandemic. [facility] Medical History (Updated 10/02/24 @ 14:36 by Felicia Sadler CNM) Encounter for physical examination Obese Breast pain, right Surgical History (Updated 10/02/24 @ 15:35 by Felicia Sadler CNM) Hx laparoscopic cholecystectomy History of surgery History of tonsillectomy History of section Family History Father Hypertension Mother No problems noted. Maternal Grandmother CVD (cardiovascular disease) CHF (congestive heart failure) Breast cancer, Onset Age: 68 Paternal Grandfather Cancer Social History Housing: House Alcohol intake: current Alcohol intake frequency: holidays/special occasions only Alcohol type: wine Patient Tobacco Use Status: Never used Tobacco e-Cigarette/Vaping Use: Never Used Second Hand Smoke Exposure: No Substance Use Type: Marijuana Patient : No service: No Current occupational status: employed Current occupational exposures/hazards: No Cognitive needs: No Hearing needs: No Vision needs: No Female Reproductive History Menstrual Age of Menarche: 14 control method: copper IUCD and other (Paragard ) Total pregnancies: 2 Full term: 2 History of abnormal pap smear: No Physical Exam Vital Signs: Last Vital Signs BP 116/74 10/02/24 13:40 BMI result Body Mass Index 30.7 Other: Normal external exam vagina is pink and clear and healthy normal white flocular healthy appearing discharge. Cervix parous pink smooth healthy appearing there are royal blue IUD strings extending about 3-4 cm curled around cervix. Cervix is long close thick mobile nontender uterus is midposition mobile nontender adnexa nontender. Good tone with Kegel. External Female Exam: normal external appearance Speculum Exam - Vagina: normal appearance of the vagina and normal vaginal discharge Speculum Exam - Cervix: normal appearance of the cervix Bimanual exam- vagina & uterus: normal bimanual exam, uterine size normal, consistency normal, uterine mobility normal, uterine shape normal and non-tender Bimanual Exam- Adnexa, other: normal adnexae, no masses and No adnexal tenderness Assessment & Plan Assessment & Plan (1) IUD complication: Comment: Patient had IUD inserted around 2019, reports recent lengthy extension of string extruding from vagina that needed to be cut (by her) need ultrasound to verify correct location of IUD. Code(s): T83.9XXA - Unspecified complication of genitourinary prosthetic device, implant and graft, initial encounter Category: Medical Qualifiers: Device complication type: unspecified Encounter type: initial encounter Qualified Code(s): T83.9XXA - Unspecified complication of genitourinary prosthetic device, implant and graft, initial encounter (2) Presence of 52 mg levonorgestrel-releasing intrauterine device (IUD): Comment: Patient has (most likely by the color of the blue strings) Liletta-possibly inserted at [facility] late 2018 early 2019,(not by [facility] midwives)...(per [facility] W review). Code(s): Z97.5 - Presence of (intrauterine) contraceptive device Category: Social Hx (3) History of section: Comment: 04/2019 ;( 05/02/2019, for known placenta previa.) Code(s): Z98.891 - History of uterine scar from previous surgery Category: Surgical Plan I did cultures today for gonorrhea chlamydia trichomoniasis bacterial vaginosis and yeast. I am not expecting any positive findings whatsoever as her discharge appears completely within normal limits. The IUD feels okay by bimanual exam it is not causing her any pain or any difficulty currently the strings are 3-4 cm long which is the correct length. (now that she has cut them!). She demonstrates that she cut off about 6-8 inches of string that was bright [place] blue. I informed her that ParaGard strings are white and not the color of blue that she has, and additionally when somebody has a ParaGard they get there. Discussed that most likely this is a Liletta IUD that is often used as an alternative to the Mirena IUD and is a progestin bearing IUD as well though I do not remember the exact dose of the levonorgestrel that it has. We will ascertain 1st whether not there is a problem with the current placement of the IUD she has inside I will endeavor to find out which kind of IUD she has if it was inserted through our practice while [facility] is no longer available to provider's I will see if health information services can review the notes for me. Discussed that currently Mirena is can be left in before between 5-8 years but if it is I Liletta we would need to check on their recommendations and some of this might depend on the dosage of the levonorgestrel. I am ordering an ultrasound to be done within the next couple of weeks she is not having any pain whatsoever. The IUD appears to be in place. My supposition at this point is that when the IUD was placed the strings were not cut. After we have a tele visit to discuss what is found in the ultrasound she can also then be scheduled for an annual exam with Pap smear. Please note I had an extensive call with [employer] their supervisor nutritional yeast who reviewed the W records. She was seen by the midwifery group in the past by many of the CNM is including this CNM as far back as 2015. She was not seen by the midwifery team in 2019. Most likely the Zohra IUD was placed elsewhere and possibly at the [facility] itself, and given that she delivered May 02 2019, by a planned at [facility] (she was hospitalized for 8 days prior to delivery because of a placenta previa), it was unlikely that her IUD was inserted any sooner than mid June of 2019 at the very earliest, and more likely early 2019. Confirmed that the Liletta dose is 52 mg levonorgestrel and it also has been extended for use for up to 8 years for contraception. I did call the patient and let her know what I discovered and after the ultrasound is done we will have a visit and come up with the plan if the IUD is not placed fundally then it should probably be replaced and we will make a plan from there if it is fine then she just needs to be seen for an annual exam with Pap smear Orders: Orders Bacterial Vaginosis Panel Today T83.9XXA - Unspecified complication of genitourinary prosthetic device, implant and graft, initial encounter US pelvic and transvaginal Today T83.9XXA - Unspecified complication of genitourinary prosthetic device, implant and graft, initial encounter CT NG by PCR Today T83.9XXA - Unspecified complication of genitourinary prosthetic device, implant and graft, initial encounter Coding Level of Care Code New Pt Level 3 (32917) Diagnoses Complication of intrauterine device (IUD), unspecified complication, initial encounter T83.9XXA Device complication type: unspecified Encounter type: initial encounter Presence of 52 mg levonorgestrel-releasing intrauterine device (IUD) Z97.5 History of section Z98.891 Time Spent (min) 45 Comment Time spent investigating patient's medical/ procedural history.
[2024-10-02 13:40] VITALS: BP 116/74; BMI 30.7
--- OUTSIDE RECORDS SUMMARY | 2024-10-02 15:42 | XMS_ITS | Encounter Summary ---
Author Organization [facility] Address [address] [place] [id number] Phone Care Team Providers Care Logistics Service Representative Name Role Phone Mamie Hewitt NP Primary Care Provider Paty johnston Encounter Details Date Type Department Care Team (Late st Contact Info) Description 03/04/2017 Conversion Encounter [facility] - [address] [address] Social History Tobacco Use Types Packs/Day Years [...] on filedocumented in this encounter Care Teams Logistics Service Representative Relationship Specialty Start Date End Date Mamie Hewitt NP PCP - General 02/26/17 10/27/22 documented as of this encounter
--- OUTSIDE RECORDS SUMMARY | 2024-10-02 15:42 | XMS_ITS | Clinical Summary ---
Author Organization [facility] Address [address] [place] [address] Phone Care Team Providers Care Brake Operator Name Role Phone Unavailable Primary Care Provider [...]
--- OUTSIDE RECORDS SUMMARY | 2024-10-02 15:42 | XMS_ITS | Clinical Summary ---
Author Organization [facility] Address [address] [place] [address] Phone Care Team Providers Care Accounts Receivable Collector Name Role Phone Kassie Osorio MD Primary Care Provider [phone] Medications diclofenac (Voltaren Arthritis Pain) 1 % topical gel Apply 4 g topically 2 (two) times a day. 240 g 1 5 10/31/19 25 Active Encounters Date Type Department Care Team Description 08/31/2024 10:30 AM EST Office Visit Orthopedic [facility] [address] [phone] Lebron Zaldivar DPM Acquired hallux valgus of [...] Upcoming Encounters Date Type Department Care Team ([facility] st Contact Info) Description 10/09/2024 3:45 PM EDT Office Visit [facility] [address] [phone] Lebron Zaldivar DPM [address] [address] Health Maintenance Due Date Last Done Comments [...] on patient's age to complete this topic Procedures Procedure Name Priority Date/Time Associated Diagnosis Comments XR FOOT 3+ VIEWS RIGHT Routine 08/31/2024 10:33 AM EST Right foot pain from Last 3 Months Results * XR Foot 3+ Views Right (08/31/2024 10:33 AM EST) Anatomical Region Laterality Modality Lower Extremities, Foot Right Computed Radiography Narrative 09/15/2024 10:27 AM EST Right foot ??3 views No fracture. No radiopaque foreign joint spaces normal Moderate to severe bunion deformity noted increased IM angulation increased HAV sesamoid position 5 Foot position Pes planus with Talus navicular uncovering decreased calcaneal inclination anterior displaced symes line talus navicular joint to calcaneal cuboid joint ?? us Lebron Zaldivar DPM IMG XR PROCEDURES Final R esult from Last 3 Months Insurance [facility]) Care Teams Accounts Receivable Collector Relationship Specialty Start Date End Date Kassie Osorio MD [address] [place] [address] , [address] [facility] D/B/A: [facility] TIFFANY Monzon PCP - General Internal Medicine 06/06/24
== END 2024-10-02 14:40 | disposition home or self-care (01) ==
PROVIDERS: PCP Internal Medicine; Visit Provider Advanced Practice Midwife
DX: T83.9XXA Unspecified complication of genitourinary prosthetic device, implant and graft, initial encounter (principal); Z97.5 Presence of (intrauterine) contraceptive device; Z98.891 History of uterine scar from previous surgery
CPT/HCPCS: 99203

== ENCOUNTER 2024-10-17 08:35 | Outpatient (REF) | payer BC, SELFPAY ==
--- NOTE | ~2024-10-17 | US_ITS ---
EXAMINATION: US PELVIS CLINICAL INFORMATION: Complication of intrauterine device. Device inserted in 2019. Pelvic pain. COMPARISON: December 03, 2015. TECHNIQUE: Ultrasound of the pelvis is performed using both transabdominal and transvaginal transducers along with Doppler. Transvaginal imaging is performed due to inadequate visualization transabdominally. FINDINGS: Uterus: The uterus is anteverted and measures 8 x 4 x 6 cm. Volume: 103 cc. Intrauterine contraceptive device placed throughout of the uterine cavity and not extending into the proper endocervical canal. Endometrial thickness is not evaluated due to intrauterine contraceptive device.. There is a 8 mm hypoechoic lesion in the myometrium. . Adnexa: Both ovaries are visualized. There is normal color flow to the adnexa. There is no ovarian torsion. There is no pelvic ascites or fluid collection. Prominent pelvic vessels. Right ovary measures 3 x 2 x 2 cm. Volume: 5 cc. There is a 1.7 cm exophytic anechoic lesion without flow on color Doppler interrogation or internal echoes. Left ovary measures 3 x 2 x 2 cm. Volume: 2 cc. Scattered follicles. US/US pelvic and transvaginal IMPRESSION: Intrauterine contraceptive device in satisfactory position. No ovarian torsion. Small, 8mm intramural fibroid. Prominent pelvic vessels. 1.7 cm cystic structure right ovary, probable dominant follicle. Electronically signed by: Mendoza Patel MD 10/17/2024 09:37 AM EDT
--- OUTSIDE RECORDS SUMMARY | 2024-10-17 08:56 | XMS_ITS | Clinical Summary ---
Author Organization [facility] Address [address] [place] [phone] Phone Care Team Providers Care Load Dispatcher Name Role Phone Unavailable Primary Care Provider [...]
--- OUTSIDE RECORDS SUMMARY | 2024-10-17 08:56 | XMS_ITS | Encounter Summary ---
Author Organization [facility] Address [address] [place] [address] Phone Care Team Providers Care Warehouse Forklift Operator Name Role Phone Mamie Hewitt NP Primary Care Provider Paty johnston Encounter Details Date Type Department Care Team (Late st Contact Info) Description 03/04/2017 Conversion Encounter [facility] - [address] [address] Social History Tobacco Use Types Packs/Day Years [...] on filedocumented in this encounter Care Teams Warehouse Forklift Operator Relationship Specialty Start Date End Date Mamie Hewitt NP PCP - General 02/26/17 10/27/22 documented as of this encounter
--- OUTSIDE RECORDS SUMMARY | 2024-10-17 08:56 | XMS_ITS | Clinical Summary ---
Author Organization 175 [facility] Address [address] [place] [address] Phone Care Team Providers Care Transit Planning Director Name Role Phone Kassie Osorio MD Primary Care Provider Allergies No known active allergies Medications diclofenac (Voltaren Arthritis Pain) 1 % topical gel Apply 4 g topically 2 (two) times a day. 240 g 1 5 10/31/19 25 Active Active Problems Problem Noted Date Diagnosed Date Acquired hallux valgus of right foot 10/09/2024 Encounters Date Type Department Care Team Description 10/09/2024 3:45 PM EDT Office Visit Orthopedic Surgery [facility] [address] [phone] Lebron Zaldivar DPM Acquired hallux valgus of right foot (Primary Dx) 08/31/2024 10:30 AM EST Office Visit [facility] [address] [phone] Lebron Zaldivar DPM Acquired hallux valgus of [...] - - Weight 93 kg (205 lb) 10/09/2024 3:49 PM EDT Height 170.2 cm (5' 7 ) 10/09/2024 3:49 PM EDT Body Mass Index 32.11 10/09/2024 3:49 PM EDT Plan of Treatment Scheduled Procedures Name Priority Associated Diagnoses Date/Ti me ARTHRODESIS FOOT Acquired hallux valgus of right foot Health Maintenance Due Date Last Done Comments Cervical Cancer Screening: Pap Smear 12/06/2008 DTaP,Tdap,and Td Vaccines (8 - Td or Tdap) 12/08/2016 12/08/2006, 01/01/2000, 08/18/1998, Additional history exists COVID-19 Vaccine ( - 2023- season) 2024 Influenza Vaccine (#1) 2024 Depression [...] calcaneal cuboid joint ?? us Lebron Zaldivar DPNazario IMG XR PROCEDURES Final R esult from Last 3 Months Insurance [facility] Care Teams Transit Planning Director Relationship Specialty Start Date End Date Kassie Osorio MD [address] [place] [address] , [address] [facility] D/B/A[facility] TIFFANY Monzon PCP - General Internal Medicine 06/06/24
== END 2024-10-17 08:36 | disposition home or self-care (01) ==
LOC: HO.US 08:35
PROVIDERS: PCP Internal Medicine; Visit Provider Advanced Practice Midwife
DX: T83.9XXA Unspecified complication of genitourinary prosthetic device, implant and graft, initial encounter (principal)
CPT/HCPCS: 76830; 76856

== ENCOUNTER → 2024-10-17 08:36 | Outpatient (BNV) | payer BC, SELFPAY | PROVIDERS: PCP Internal Medicine; Visit Provider Radiology Diagnostic Radiology | DX: R10.2 Pelvic and perineal pain (principal) | CPT/HCPCS: 76830; 76856 ==

== ENCOUNTER 2024-10-30 09:34 | Outpatient (AMB) | payer BC, SELFPAY ==
--- NOTE | 2024-10-30 09:35 | MHC.OFFVIS ---
Intake Visit Reasons: Tv ultra sound follow up Allergies mosquitos Allergy (Mild, Uncoded 08/30/24 10:33) Rash Medication List - Last Reconciled 10/30/24 by Felicia Sadler CNM tirzepatide 2.5 mg subcut QWEEK HPI HPI Tv ultra sound follow up: Details: THIS IS A TELE VISIT TO REVIEW PATIENT'S ULTRASOUND THAT SHE HAD DONE FOR PELVIC PAIN. She has a history of having an IUD placed sometime in 2018 2019. She had been having some pelvic pain that reminded her of a UTI and she went to urgent care and had that checked out and everything checked out fine. In addition she 1 day had noticed the IUD strings sticking out of her vagina and they were extremely long and bright blue and because it would be a while before she could be seen she cut them herself. She was seen and evaluated by me she had thought that she had a ParaGard IUD but the presence of the bright blue strings revealed that it was a Liletta IUD. Additionally was not inserted by the [facility] team so it was most likely inserted at the [facility] by their staff.. Currently she is feeling fine. See the ultrasound for details I reviewed every detail in the ultrasound there was a typo or miss statement in the part of the ultrasound where it seemed to indicate that proper positioning of the IUD would be within the endo cervical canal which would be in fact in proper and we are waiting on the final addended reading of that. I have been assured by ultrasound staff that per the notes and films of the ultrasound done, the IUD was in the proper position.. I reviewed the entire ultrasound with her including the tiny possible fibroid and the dominant follicles that were seen. Reviewed her IUD and how long it can be used she was told 7 years and has let most likely been in for 5 at this point I did remind her to be aware of her cycles and if she returns to getting normal periods she may need to schedule replacement then she is feeling fine now in addition I also reviewed about the pelvic prominent vessels. PENDING SALE TO [facility] Medical History (Updated 10/30/24 @ 10:40 by Felicia Sadler CNM) Encounter for physical examination Obese Breast pain, right Surgical History (Updated 10/02/24 @ 15:35 by Felicia Sadler CNM) Hx laparoscopic cholecystectomy History of surgery History of tonsillectomy History of section Family History Father Hypertension Mother No problems noted. Maternal Grandmother CVD (cardiovascular disease) CHF (congestive heart failure) Breast cancer, Onset Age: 68 Paternal Grandfather Cancer Social History Housing: House Alcohol intake: current Alcohol intake frequency: holidays/special occasions only Alcohol type: wine Patient Tobacco Use Status: Never used Tobacco e-Cigarette/Vaping Use: Never Used Second Hand Smoke Exposure: No Substance Use Type: Marijuana service: No Current occupational status: employed Current occupational exposures/hazards: No Cognitive needs: No Hearing needs: No Vision needs: No Female Reproductive History Menstrual Age of Menarche: 14 Telehealth Telehealth Telehealth Platform: [employer] Location of provider rendering services: practice address Location of patient: address on file Patient Identification confirmed using: Name, : Yes Telehealth method: video Patient verbally consented to treatment: Yes Patient verbally consented to billing insurance company: Yes Patient informed of any privacy concerns related to visit: Yes Minutes spent on Phone/Video with Pt.: 16 (4 cr/16 speaking w pt/ 8 charting=28) Results Reviewed Results Reviewed: Patient: Jerel Dove MR#: [id number] : 1985 Acct:[id number] Age/Sex: 38 / F ADM Date: 10/17/24 Loc: HO.US Attending Dr: Felicia Sadler CNM Ordering Physician: Felicia Sadler CNM Date of Service: 10/17/24 Procedure(s): US pelvic and transvaginal Accession Number(s): [id number] cc: Felicia Sadler CNM; Kassie Goss MD~ EXAMINATION: US PELVIS CLINICAL INFORMATION: Complication of intrauterine device. Device inserted in 2019. Pelvic pain. COMPARISON: December 03, 2015. TECHNIQUE: Ultrasound of the pelvis is performed using both transabdominal and transvaginal transducers along with Doppler. Transvaginal imaging is performed due to inadequate visualization transabdominally. FINDINGS: Uterus: The uterus is anteverted and measures 8 x 4 x 6 cm. Volume: 103 cc. Intrauterine contraceptive device placed throughout of the uterine cavity and not extending into the proper endocervical canal. Endometrial thickness is not evaluated due to intrauterine contraceptive device.. There is a 8 mm hypoechoic lesion in the myometrium. . Adnexa: Both ovaries are visualized. There is normal color flow to the adnexa. There is no ovarian torsion. There is no pelvic ascites or fluid collection. Prominent pelvic vessels. Right ovary measures 3 x 2 x 2 cm. Volume: 5 cc. There is a 1.7 cm exophytic anechoic lesion without flow on color Doppler interrogation or internal echoes. Left ovary measures 3 x 2 x 2 cm. Volume: 2 cc. Scattered follicles. US/US pelvic and transvaginal IMPRESSION: Intrauterine contraceptive device in satisfactory position. No ovarian torsion. Small, 8mm intramural fibroid. Prominent pelvic vessels. 1.7 cm cystic structure right ovary, probable dominant follicle. Electronically signed by: Mendoza Patel MD 10/17/2024 09:37 AM EDT WE ARE STILL AWAITING A CORRECTED ADDENDED READING ON THIS ULTRASOUND DISCUSSED WITH ULTRASOUND STAFF PER THE BAND LOG MILL AND CARRIAGE OPERATOR WHO DID THE ULTRASOUND THE IUD WAS IN THE PROPER PLACE. Dictated By: Mendoza Purvis MD Signed By: <Electronically signed by Mendoza Bland MD in OV> 10/17/24 0937 DD/ 0854 TD/TT: 10/17/24 0914 Vulcan Crewmember: Assessment & Plan Assessment & Plan (1) IUD complication: Comment: Patient had IUD inserted around 2019, reports recent lengthy extension of string extruding from vagina that needed to be cut (by her) need ultrasound to verify correct location of IUD. Code(s): T83.9XXA - Unspecified complication of genitourinary prosthetic device, implant and graft, initial encounter Category: Medical Qualifiers: Device complication type: unspecified Encounter type: initial encounter Qualified Code(s): T83.9XXA - Unspecified complication of genitourinary prosthetic device, implant and graft, initial encounter (2) Presence of 52 mg levonorgestrel-releasing intrauterine device (IUD): Comment: Patient has (most likely by the color of the blue strings) Liletta-possibly inserted at [facility] late 2018 early 2019,(not by [facility] midwives)...(per EC W review). Code(s): Z97.5 - Presence of (intrauterine) contraceptive device Category: Medical (3) Fibroid uterus: Comment: Probable tiny fibroid 8 mm. Code(s): D25.9 - Leiomyoma of uterus, unspecified Category: Medical Plan IUD placed sometime in 2018 2019. She had been having some pelvic pain that reminded her of a UTI and she went to urgent care and had that checked out and everything checked out fine. In addition she 1 day had noticed the IUD strings sticking out of her vagina and they were extremely long and bright blue and because it would be a while before she could be seen she cut them herself. She was seen and evaluated by me she had thought that she had a ParaGard IUD but the presence of the bright blue strings revealed that it was a Liletta IUD. Additionally was not inserted by the [facility] team so it was most likely inserted at the [facility] by their staff.. Currently she is feeling fine. See the ultrasound for details I reviewed every detail in the ultrasound there was a typo or miss statement in the part of the ultrasound where it seemed to indicate that proper positioning of the IUD would be within the endo cervical canal which would be in fact in proper and we are waiting on the final addended reading of that. I have been assured by ultrasound staff that per the notes and films of the ultrasound done, the IUD was in the proper position.. I reviewed the entire ultrasound with her including the tiny possible fibroid and the dominant follicles that were seen. Reviewed her IUD and how long it can be used she was told 7 years and has let most likely been in for 5 at this point I did remind her to be aware of her cycles and if she returns to getting normal periods she may need to schedule replacement then she is feeling fine now in addition I also reviewed about the pelvic prominent vessels. Coding Level of Care Code Tele Est Pt Level 3 (92102) Diagnoses Complication of intrauterine device (IUD), unspecified complication, initial encounter T83.9XXA Device complication type: unspecified Encounter type: initial encounter Presence of 52 mg levonorgestrel-releasing intrauterine device (IUD) Z97.5 Fibroid uterus D25.9 Time Spent (min) 28
--- OUTSIDE RECORDS SUMMARY | 2024-10-30 10:37 | XMS_ITS | Clinical Summary ---
Author Organization [facility] Address [address] [place] [address] Phone Care Team Providers Care Polymerization Oven Tender Name Role Phone Unavailable Primary Care Provider [...]
--- OUTSIDE RECORDS SUMMARY | 2024-10-30 10:37 | XMS_ITS | Encounter Summary ---
Author Organization [facility] Address [address] [place] [address] Phone Care Team Providers Care Chamfering Machine Operator Name Role Phone Mamie Hewitt NP Primary Care Provider Paty johnston Encounter Details Date Type Department Care Team (Late st Contact Info) Description 03/04/2017 Conversion Encounter [facility] - [address] [address] Social History Tobacco Use Types Packs/Day Years [...] on filedocumented in this encounter Care Teams Chamfering Machine Operator Relationship Specialty Start Date End Date Mamie Hewitt NP PCP - General 02/26/17 10/27/22 documented as of this encounter
--- OUTSIDE RECORDS SUMMARY | 2024-10-30 10:37 | XMS_ITS | Clinical Summary ---
Author Organization 175 [facility] Address [address] [place] [address] Phone Care Team Providers Care Wax Pattern Repairer Name Role Phone Kassie Osorio MD Primary Care Provider [phone] Allergies No known active allergies Medications diclofenac (Voltaren Arthritis Pain) 1 % topical gel Apply 4 g topically 2 (two) times a day. 240 g 1 5 10/31/19 25 Active Active Problems Problem Noted Date Diagnosed Date Acquired hallux valgus of right foot 10/09/2024 Encounters Date Type Department Care Team Description 10/09/2024 3:45 PM EDT Office Visit Orthopedic Surgery [facility] [address] [phone] Lebron Zaldivar DPM Acquired hallux valgus of right foot (Primary Dx) 08/31/2024 10:30 AM EST Office Visit [facility] [address] [phone] Lebron Zaldivar DPM Acquired hallux valgus of [...] 08/18/1998, Additional history exists COVID-19 Vaccine ( season) 2024 Depression Screening 06/07/2024 HIV Screening 06/07/2024 Hepatitis C Screening 06/07/2024 Social Influencers of Health Screening 06/07/2024 Influenza Vaccine (Season Ended) 2025 HIB Vaccines Completed 02/15/1990 IPV Vaccines Completed [...] age to complete this topic Meningococcal B Vaccine Aged Out No l onger eligible based on patient's age to complete [...] R esult from Last 3 Months Insurance [facility] Care Teams Wax Pattern Repairer Relationship Specialty Start Date End Date Kassie Osorio MD [address] [place] [address] , [address] [facility] D/B/A[facility] TIFFANY Monzon PCP - General Internal Medicine 06/06/24
== END 2024-10-30 11:47 | disposition home or self-care (01) ==
LOC: HO.HWS 09:34
PROVIDERS: PCP Internal Medicine; Visit Provider Advanced Practice Midwife
DX: R10.2 Pelvic and perineal pain (principal); D25.9 Leiomyoma of uterus, unspecified; Z97.5 Presence of (intrauterine) contraceptive device
CPT/HCPCS: 99213

== ENCOUNTER 2024-12-05 13:07 | Outpatient (AMB) | payer BC, SELFPAY ==
--- NOTE | 2024-12-05 13:07 | MHC.OFFVIS ---
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 Last LMP was 2019 before putting in IUD. States last pap smear she believes was in Feburary, negative. Cultures done in September. 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 She does not know when her last Pap smear was she was seen for follow-up from an emergency room for pelvic pain this year and had her IUD checked and a small fibroid is found but the IUDs in perfect position she had thought she has a ParaGard IUD it was ascertain during the exam when I could see the bright blue strings that it was a Liletta IUD. She had trimmed the strings herself apparently they have been left long after the insertion.. It was most likely by her history or remembering it is inserted at the [facility] but it was not inserted through the midwifery care team connected with [facility] midwives (call had been placed at the September visit to medical records who reviewed in detail with me on the phone the medical records that were available in the ) She has no concerns about STDs testing done in September was all negative. The IUDs doing very well for her. 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 She has lost about 40 lb in the last year with the help of Ozempic and she feels very good on it and it has cut out a lot of ' food noise' for her [facility] Medical History Encounter for physical examination Obese Breast pain, right Surgical History Hx laparoscopic cholecystectomy History of surgery History of tonsillectomy History of section Family History Father Hypertension Mother No problems noted. Maternal Grandmother CVD (cardiovascular disease) CHF (congestive heart failure) Breast cancer, Onset Age: 68 Paternal Grandfather Cancer Social History Housing: House Alcohol intake: current Alcohol intake frequency: holidays/special occasions only Alcohol type: wine Patient Tobacco Use Status: Never used Tobacco e-Cigarette/Vaping Use: Never Used Second Hand Smoke Exposure: No Substance Use Type: Marijuana service: No Current occupational status: employed Current occupational exposures/hazards: No Cognitive needs: No Hearing needs: No Vision needs: No Female Reproductive History Menstrual Age of Menarche: 14 control method: progestin IUCD (Liletta IUD, ascertained through physical exam 2024, NOT A PARAGARD IUD, ?[facility] 2018 OR 2019) Total pregnancies: 2 Full term: 2 Physical Exam Vital Signs: Last Vital Signs BP 108/72 12/05/24 13:16 BMI result Body Mass Index 30.7 Const General: healthy appearing, comfortable, no acute distress, well developed and alert Nutritional Appearance: average body habitus Orientation/consciousness: patient oriented x3 Limitations: no limitations HEENT Head: Yes normocephalic Neck Neck: Yes normal visual inspection Chest Chest palpation & inspection: normal inspection of the chest Breast/axilla inspection: normal inspection of the breasts and normal inspection of the axillae Breast/axilla palpation: normal palpation of the breasts and normal palpation of the axillae Resp Effort & Inspection: normal respiratory effort GI Inspection: Yes normal to inspection, No Abdominal wall edema and No distended Palpation (GI): Soft to palpation and nontender Other: Normal speculum exam vagina pink and moist with a little bit of old brown menses type discharge consistent with irregular spotting with levonorgestrel in part in IUD. Cervix multiparous with blue lie let us strings visible Pap smear done cultures not need it as negative in September. Cervix long close thick mobile nontender uterus midposition mobile nontender adnexa nontender good tone with Kegel. General: Yes bladder normal to palpation External Female Exam: normal external appearance and normal appearance of the urethra Speculum Exam - Vagina: normal appearance of the vagina, normal palpation and normal vaginal discharge Speculum Exam - Cervix: normal appearance of the cervix, normal palpation and nontender Bimanual exam- vagina & uterus: normal bimanual exam, normal palpation, uterine size normal, bladder normal to palpation, consistency normal, normal palpation, uterine mobility normal, uterine shape normal, No Cervical tenderness present, non-tender and no cervical motion tenderness Bimanual Exam- Adnexa, other: normal adnexae, no masses, normal and No adnexal tenderness Neuro General: patient oriented x3 Results Reviewed Results Reviewed: All labs available in this [employer] system since 2019. Assessment & Plan Assessment & Plan (1) History of section: Comment: 04/2019 ;( 05/02/2019, for known placenta previa.) Code(s): Z98.891 - History of uterine scar from previous surgery Category: Surgical (2) Presence of 52 mg levonorgestrel-releasing intrauterine device (IUD): Comment: Patient has (most likely by the color of the blue strings) Liletta-possibly inserted at [facility] late 2018 early 2019,(not by [facility] midwives)...(per EC W review). Code(s): Z97.5 - Presence of (intrauterine) contraceptive device Category: Social Hx (3) Fibroid uterus: Comment: Probable tiny fibroid 8 mm. Code(s): D25.9 - Leiomyoma of uterus, unspecified Category: Medical (4) Well woman exam with routine gynecological exam: Code(s): Z01.419 - Encounter for gynecological examination (general) (routine) without abnormal findings Category: Medical (5) Cervical cancer screening: Code(s): Z12.4 - Encounter for screening for malignant neoplasm of cervix Category: Medical Plan -----Discussed in this visit the following: healthy balanced diet, regular and consistent exercise, getting recommended health screens, doing the best she can for her particular health concerns, kegel exercises, pap smear screening and followup recommendations, mammography screening and SBE, normal changes in cycles in her life stage--- . Reviewed her excellent self-care. Reviewed her work and life. She has been using Ozempic for the last year and it has helped her immensely and she has lost about 40 lb. 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 The Liletta is serving her well and she is very happy with the discussed becoming aware of settle cycle changes so that when it starts to wear off she has increased awareness about that and if it is any doubt she should start using condoms at that time reviewed that it most likely can be used for between 5 and 8 years similar to the Mirena though it maybe package for 5 years. We will see her next year and see how she is doing with it. Discussed the any point that she thinks she has returned to fertility and regular cycles we can replace it. She was pretty sure she did fasting blood work recently and there was some fasting chemistry labs but not a CBC and she had been taking iron since she delivered in 2019 so I have ordered a CBC and added a TSH just to check on those levels. We both poured through the labs done since 2019 that were available in her chart. Orders: Orders Thyroid Stimulating Hormone Today D25.9 - Leiomyoma of uterus, unspecified, Z01.419 - Encounter for gynecological examination (general) (routine) without abnormal findings, Z12.4 - Encounter for screening for malignant neoplasm of cervix, Z97.5 - Presence of (intrauterine) contraceptive device, Z98.891 - History of uterine scar from previous surgery Complete Blood Count no Diff Today D25.9 - Leiomyoma of uterus, unspecified, Z01.419 - Encounter for gynecological examination (general) (routine) without abnormal findings, Z12.4 - Encounter for screening for malignant neoplasm of cervix, Z97.5 - Presence of (intrauterine) contraceptive device, Z98.891 - History of uterine scar from previous surgery Coding Level of Care Code Est Pt Prev Care 18-39y(28032) Diagnoses History of section Z98.891 Presence of 52 mg levonorgestrel-releasing intrauterine device (IUD) Z97.5 Fibroid uterus D25.9 Well woman exam with routine gynecological exam Z01.419 Cervical cancer screening Z12.4
[2024-12-05 13:16] VITALS: BP 108/72; BMI 30.7
--- OUTSIDE RECORDS SUMMARY | 2024-12-05 14:10 | XMS_ITS | Clinical Summary ---
Author Organization [address] [facility] Address [address] [place] [address] Phone Care Team Providers Care Tree Loader Meat Name Role Phone Kassie Osorio MD Primary Care Provider [phone] Allergies No known active allergies Medications No known medications Active Problems Problem Noted Date Diagnosed Date Acquired hallux valgus of right foot 10/09/2024 Encounters Date Type Department Care Team Description 10/09/2024 3:45 PM EDT Office Visit Orthopedic Surgery [facility] [address] [facility] [address] [place] [phone] Lebron Zaldivar DPM Acquired hallux valgus of right foot (Primary Dx) from Last 3 Months Social History Tobacco [...] patient's age to complete this topic Insurance [facility]) Care Teams Tree Loader Meat Relationship Specialty Start Date End Date Devon, Kassie R, MD [address] [facility] , [address] [facility] D/B/A: Na Adler In Internal Medicine TIFFANY Monzon PCP - General Internal Medicine 06/06/24
--- OUTSIDE RECORDS SUMMARY | 2024-12-05 14:10 | XMS_ITS | Encounter Summary ---
Author Organization [facility] Address [address] [place] [phone] Phone Care Team Providers Care Pool Finisher Name Role Phone Mamie Hewitt NP Primary Care Provider Paty johnston Encounter Details Date Type Department Care Team (Late st Contact Info) Description 03/04/2017 Conversion Encounter [facility] - [address] [address] Social History Tobacco Use Types Packs/Day Years [...] on filedocumented in this encounter Care Teams Pool Finisher Relationship Specialty Start Date End Date Mamie Hewitt NP PCP - General 02/26/17 10/27/22 documented as of this encounter
--- OUTSIDE RECORDS SUMMARY | 2024-12-05 14:10 | XMS_ITS | Clinical Summary ---
Author Organization [facility] Address [address] [place] [phone] Phone Care Team Providers Care Guidance Adviser Name Role Phone Unavailable Primary Care Provider [...]
== END 2024-12-06 13:33 | disposition home or self-care (01) ==
LOC: HO.HWSM 13:07
PROVIDERS: PCP Internal Medicine; Visit Provider Advanced Practice Midwife
DX: Z01.419 Encounter for gynecological examination (general) (routine) without abnormal findings (principal); D25.9 Leiomyoma of uterus, unspecified; Z98.891 History of uterine scar from previous surgery
CPT/HCPCS: 99395; 99459

== ENCOUNTER 2024-12-05 13:07 | Outpatient (REF) | payer BC, SELFPAY ==
--- OUTSIDE RECORDS SUMMARY | 2024-12-05 16:33 | XMS_ITS | Encounter Summary ---
Author Organization [facility] Address [address] [place] [phone] Phone Care Team Providers Care Residential Real Estate Appraiser Name Role Phone Mamie Hewitt NP Primary Care Provider Paty johnston Encounter Details Date Type Department Care Team (Late st Contact Info) Description 03/04/2017 Conversion Encounter [facility] - [address] [address] Social History Tobacco Use Types Packs/Day Years [...] on filedocumented in this encounter Care Teams Residential Real Estate Appraiser Relationship Specialty Start Date End Date Mamie Hewitt NP PCP - General 02/26/17 10/27/22 documented as of this encounter
--- OUTSIDE RECORDS SUMMARY | 2024-12-05 16:33 | XMS_ITS | Clinical Summary ---
Author Organization [address] [facility] Address [address] [place] [address] Phone Care Team Providers Care Catering Sous Chef Name Role Phone Kassie Osorio MD Primary Care Provider [phone] Allergies No known active allergies Medications No known medications Active Problems Problem Noted Date Diagnosed Date Acquired hallux valgus of right foot 10/09/2024 Encounters Date Type Department Care Team Description 10/09/2024 3:45 PM EDT Office Visit Orthopedic Surgery [facility] [address] [facility] [address] [place] [phone] Lebron Zaldivar DPM Acquired hallux valgus [...] patient's age to complete this topic Insurance [facility]) Care Teams Catering Sous Chef Relationship Specialty Start Date End Date Devon, Kassie R, MD 2 [facility] , [address] [facility] D/B/A: Na Adler In Internal Medicine TIFFANY Monzon PCP - General Internal Medicine 06/06/24
--- OUTSIDE RECORDS SUMMARY | 2024-12-05 16:33 | XMS_ITS | Clinical Summary ---
Author Organization [facility] Address [address] [place] [phone] Phone Care Team Providers Care Home Mission Worker Name Role Phone Unavailable Primary Care Provider [...]
[2024-12-08 14:41] LABS: HPV Genotype 16 Negative (Negative); HPV Genotype 18 Negative (Negative); HPV High Risk Negative (Negative)
== END 2024-12-05 13:08 | disposition home or self-care (01) ==
LOC: HO.LNP 13:07
PROVIDERS: PCP Internal Medicine; Visit Provider Advanced Practice Midwife
DX: Z01.419 Encounter for gynecological examination (general) (routine) without abnormal findings (principal)
CPT/HCPCS: 87626; 88175

== ENCOUNTER 2025-05-03 13:01 | Outpatient (AMB) | payer BC, SELFPAY ==
[2025-05-03 13:04] VITALS: BP 104/70; PULSE 67; RESP 18; TEMP 36.3; O2SAT 97; BMI 30.8
--- NOTE | 2025-05-03 13:04 | MHC.PC.OV ---
Vital Signs 05/03/25 13:04 Height 5 ft 10 in Weight 215 lb BMI 30.8 BP 104/70 Blood Pressure Location Lt brachial Position Standing Respiration 18 Pulse 67 Pulse Source Pulse Oximeter Temp 97.3 F Temp Source Temporal Artery Scan Pulse Oximetry (%) 97 Oxygen Delivery Method Room Air Intake Visit Reasons: Annual exam Decorating Equipment Setter Required: No Accompanied by: Self / Same As Patient Allergies mosquitos Allergy (Mild, Uncoded 05/03/25 13:20) Rash Medication List - Last Reconciled 05/03/25 by Kassie Osorio MD tirzepatide 2.5 mg subcut QWEEK Tobacco use date assessed: 05/03/25 Dental Screening Dental Screen Date: 05/03/25 Did you have a dental visit in the last 12 months?: No Did you have a dental problem in the last 6 months where you did not have access to dental care?: No Was dental information given to patient?: No HPI HPI Comments History of Present Illness Details The patient is a 39-year-old female presenting for a physical examination and follow-up on recent foot surgery. She underwent bunion correction surgery on her right foot, which involved the insertion of metal plates due to bone shifting. The surgery was performed on the , and she is currently in a boot to protect the foot, which remains swollen and soft. The patient experienced complications as her body rejected the internal stitches, leading to wound reopening. 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 She also has a history of a fibroid detected on ultrasound, which was deemed insignificant by her OB-DISTRIBUTION ANALYST. Her past medical history includes gallbladder removal, tonsillectomy, papilloma removal, and a section in 2019. She reports an allergy to mosquito bites and experiences mild depression related to sleep disturbances, which she attributes to her busy lifestyle and inability to turn off her thoughts. The patient does not smoke and consumes wine a few times a month. Her father has a history of hypertension, while her mother is reportedly healthy. [facility] Medical History Encounter for physical examination Obese Breast pain, right Surgical History (Updated 05/03/25 @ 13:25 by Kassie Osorio MD) H/O foot surgery Hx laparoscopic cholecystectomy History of surgery History of tonsillectomy History of section Family History Father Hypertension Mother No problems noted. Maternal Grandmother CVD (cardiovascular disease) CHF (congestive heart failure) Breast cancer, Onset Age: 68 Paternal Grandfather Cancer Social History (Updated 05/03/25 @ 13:27 by Kassie Osorio MD) Housing: House Alcohol intake: current Alcohol intake frequency: a few times a month Alcohol type: wine Patient Tobacco Use Status: Never used Tobacco e-Cigarette/Vaping Use: Never Used Second Hand Smoke Exposure: No Substance Use Type: Marijuana service: No Current occupational status: employed Current occupational exposures/hazards: No Cognitive needs: No Hearing needs: No Vision needs: No Female Reproductive History Menstrual Age of Menarche: 14 Questionnaire PHQ-9 Over the last 2 weeks, how often have you been bothered by any of the following problems? 1. Little interest or pleasure in doing things: not at all 2. Feeling down, depressed, or hopeless: not at all 3. Trouble falling or staying asleep, or sleeping too much: nearly every day 4. Feeling tired or having little energy: more than half the days 5. Poor appetite or overeating: several days 6. Feeling bad about yourself - or that you are a failure or have let yourself or your family down: not at all 7. Trouble concentrating on things, such as reading the newspaper or watching television: not at all 8. Moving or speaking so slowly that other people could have noticed. Or the opposite - being so fidgety or restless that you have been moving around a lot more than usual: not at all 9. Thoughts that you would be better off or of hurting yourself in some way: not at all Total score: 6 Depression Screening Interpretation: Negative Depression Screening Done: Yes 93104 - PHQ-9 Billing: Yes Source: Developed by Drs. Josue Canada, Nunu Lowe, Chris Kelley and colleagues, with an educational jeniffer from [employer] by [employer]. Thrive Questionnaire Date Thrive assessed: 07/25/24 I am a: Patient What is your living situation today?: I have a steady place to live Within the past 12 months, did the food you bought not last and you didn't have the money to get more?: Never true Within the past 12 months, did you worry whether your food would run out before you got money to buy more?: Never true Do you have trouble paying for medicines?: No Do you have trouble getting transportation to medical appointments?: No Do you have trouble paying your heating and electricity bill?: No Do you have trouble taking care of your child, family member or friend?: No Do you have trouble with day-to-day activities such as bathing, preparing meals, shopping, managing finances, etc.?: No Are you currently unemployed and looking for a job?: No Are you interested in more education?: No Please select the resources that you would like help with: None Currently or been in a relationship where the following occur: No concerns reported THRIVE Score: 0 AUDIT C Alcohol Use Questionnaire (AUDIT-C) 1. How often do you have a drink containing alcohol?: Monthly or less 2. How many drinks containing alcohol do you have on a typical day when you are drinking?: 3 or 4 3. How often do you have six or more drinks on one occasion?: Less than monthly Total Score: 3 TRENT-7 AMB Questionnaire TRENT-7 Date TRENT - 7 assessed: 07/25/24 Feeling nervous, anxious, or on edge: 1 = Several days Not being able to stop or control worryin = Several days Worrying too much about different things: 1 = Several days Trouble relaxin = Several days Being so restless that it is hard to sit still: 1 = Several days Becoming easily annoyed or irritable: 1 = Several days Feeling afraid as if something awful might happen: 1 = Several days Total TRENT-7 score (0-4 normal; 5-9 mild; 10-14 moderate; 15-21 severe): 7 Source: Developed by Drs. Josue Canada, Nunu Lowe, Chris Kelley and colleagues, with an educational jeniffer from [employer] by [employer]. TRENT-7 Assessment Billing TRENT-7 Assessment Tool: TRENT-7 Assessment 01430 Review of Systems Const All systems reviewed & are unremarkable except as noted in HPI and below Card Denies chest pain at rest, Denies chest pain with activity, Denies edema, Denies irregular heart rhythm, Denies claudication, Denies dyspnea, Denies dyspnea on exertion, Denies orthopnea, Denies paroxysmal nocturnal dyspnea and Denies slow heart rate Resp Denies cough, Denies dyspnea and Denies dyspnea on exertion GI Denies abdominal pain, Denies change in bowel habits, Denies excessive flatus, Denies nausea and Denies vomiting Denies urinary incontinence, Denies urinary hesitancy and Denies urinary urgency Musc Denies atrophy, Denies deformity and Denies limited range of motion Skin/Breast Denies bleeding lesions, Denies changing lesions and Denies rash Physical exam (Primary Care) Vital Signs: Last Vital Signs Temp 97.3 F 05/03/25 13:04 Pulse 67 05/03/25 13:04 Resp 18 05/03/25 13:04 BP 104/70 05/03/25 13:04 Pulse Ox 97 05/03/25 13:04 Oxygen Delivery Method Room Air 05/03/25 13:04 BMI result Body Mass Index 30.8 BMI Assessment/Plan discussion: High BMI High, discussed plan: lifestyle, weight reduction, dietary and physical activity Tobacco/Smoking Status: Tobacco use Status Tobacco use date assessed 05/03/25 05/03/25 13:12 Patient Tobacco Use Status Never used Tobacco 05/03/25 13:12 e-Cigarette/Vaping Use Never Used 05/03/25 13:12 PHQ-9: PHQ-9 Score PHQ-9: Total score 6 05/03/25 13:12 Depression Screening Interpretation: Negative Thrive Assessment: Date of Thrive Assessment Date Thrive assessed 07/25/24 05/03/25 13:12 Currently or been in a relationship where the following occur: No concerns reported [facility] Head: Yes normal to inspection, Yes normocephalic and Yes atraumatic Ears: external ears normal Eyes General: appearance normal, both eyes and all related structures Eyelids: Yes eyelids normal Conjunctivae: conjunctivae normal Neck Neck: Yes normal visual inspection and Yes supple Resp Effort & Inspection: normal respiratory effort Auscultation: clear to auscultation bilaterally Cardio Jugular venous distension: no JVD Rate: regular rate Rhythm: regular rhythm Heart sounds: S1 normal heart sound present and S2 normal heart sound present GI Inspection: Yes normal to inspection Palpation (GI): Soft to palpation and nontender Auscultation: normal bowel sounds Skin General skin exam: no rashes or lesions noted Neuro General: no focal motor deficits Extrem General: Yes full ROM Psych Appearance: grossly normal Coding Level of Care Code Est Pt Prev Care 18-39y(03090) Diagnoses Encounter for physical examination Z00.00 Additional Codes PHQ-9 - 90829 - PHQ-9 Billing: Yes ([id number]) TRENT-7 Assessment Billing - TRENT-7 Assessment Tool: TRENT-7 Assessment 53892 ([id number]) Time Spent (min) 30 Assessment & Plan Assessment & Plan (1) Encounter for physical examination: Code(s): Z00.00 - Encounter for general adult medical examination without abnormal findings Category: Medical Plan Plan Patient was informed and verbally consented to the use of an ambient scribe for clinic note documentation during this visit. 1. Encounter for general adult medical examination without abnormal findings Z00.00 Repeat in a year. Declined flu vaccine.
--- OUTSIDE RECORDS SUMMARY | 2025-05-03 16:15 | XMS_ITS | Clinical Summary ---
Author Organization [facility] Address [address] [place] [phone] Phone Care Team Providers Care Aerospace Manager Name Role Phone Unavailable Primary Care Provider [...] 08/18/1998, Additional history exists Influenza Vaccines (#1) 2025 COVID-19 Vaccine ( season) 2025 HIB Vaccines Completed 02/15/1990 IPV Vaccines [...]
--- OUTSIDE RECORDS SUMMARY | 2025-05-03 16:15 | XMS_ITS | Encounter Summary ---
Author Organization [facility] Address [address] [place] [phone] Phone Care Team Providers Care Feed Mixer Helper Name Role Phone Mamie Hewitt NP Primary Care Provider Paty johnston Encounter Details Date Type Department Care Team (Late st Contact Info) Description 03/04/2017 Conversion Encounter [facility] - [address] [address] Social History Tobacco Use Types Packs/Day Years [...] on filedocumented in this encounter Care Teams Feed Mixer Helper Relationship Specialty Start Date End Date Mamie Hewitt NP PCP - General 02/26/17 10/27/22 documented as of this encounter
--- OUTSIDE RECORDS SUMMARY | 2025-05-03 16:15 | XMS_ITS | Clinical Summary ---
Author Organization [address] [facility] Address [address] [place] [address] Phone Care Team Providers Care Production Troubleshooter Name Role Phone Kassie Osorio MD Primary Care Provider Allergies Active Allergy Reactions Criticality Noted Date Comments Morphine Nausea And Vomiting 04/09/2025 Medications oxyCODONE (ROXICODONE) 5 mg immediate release tabletIndicatio ns:Acquired hallux valgus of right foot Take 1 tablet (5 mg total) by mouth every 4 (four) hours if needed for severe pain. Max Daily Amount: 30 mg 35 tablet 5 Active povidone-iodine (Betadine) 10 % topical solution Apply topically 1 (one) time each day. 473 mL 5 Active aspirin 325 mg EC tablet Take 1 tablet (325 mg total) by mouth 1 (one) time each day. 30 each 1 5 04/24/20 25 amoxicillin-cla vulanate (AUGMENTIN) 875-125 mg per tablet Take 1 tablet by mouth 2 (two) times a day for 10 days. 20 tablet 5 04/13/20 25 Additional Information Patient not taking.Reported on 04/23/2025 Active Problems Problem Noted Date Diagnosed Date Acquired hallux valgus of right foot 10/09/2024 Encounters Date Type Department Care Team Description 04/23/2025 9:00 AM EDT Office Visit Orthopedic Surgery [facility] [address] [facility] [address] [place] [address] Lebron Zaldivar DPM Post-operative state (Primary Dx) 04/17/2025 10:15 AM EDT Office Visit Orthopedic [facility] [address] [phone] Lebron Zaldivar DPM Post-operative state (Primary Dx) 04/09/2025 10:45 AM EDT Office Visit Orthopedic [facility] [address] [phone] Lebron Zaldivar DPM Post-operative state (Primary Dx); Dehiscence of operative wound, initial encounter 04/03/2025 Telephone Orthopedic Surgery [place] [phone] [phone] Lebron Zaldivar DPM 03/08/2025 2:30 PM EDT Office Visit Orthopedic [place] [address] [phone] Lebron Zaldivar DPM Post-operative state (Primary Dx) 03/02/2025 Telephone Orthopedic Surgery [place] [address] [phone] Lebron Zaldivar DPM 02/23/2025 7:30 AM EDT - 02/23/2025 9:15 AM EDT Surgery [facility] [place] [address] [place] [phone] Lebron Zaldivar DPM ARTHRODESIS RIGHT FOOT [03820 (CPT )] 02/23/2025 7:28 AM EDT Anesthesia Event [facility] [place] [address] [place] [phone] Barber Gabriel MD Dasilva, John E, MD 02/23/2025 6:00 AM EDT - 02/23/2025 10:59 AM EDT Hospital Encounter [facility] [place] [address] [place] [phone] Lebron Zaldivar DPM Acquired hallux valgus of right foot Discharge Disposition: Home or Self Care 02/22/2025 Telephone Orthopedic [facility] [place] [address] [phone] Lebron Zaldivar DPM 02/21/2025 8:00 AM EDT Consult Orthopedic [facility] [address] [phone] Lebron Zaldivar DPM Acquired hallux valgus of right foot (Primary Dx) 02/12/2025 Telephone Orthopedic [facility] [address] [phone] Lebron Zaldivar DPM from Last 3 Months Surgical History Surgery Date Site/Laterality Comments SECTION, LOW TRANSVERSE TONSILLECTOMY CHOLECYSTECTOMY Social History Tobacco Use Types Packs/Day Years Used Date Smoking Tobacco: Never Smokeless Tobacco: Never Tobacco Cessation:Counseling Given: Not Answered Alcohol Use Standard Drinks/Week Comments Yes 0 (1 standard drink = 0.6 oz pur e alcohol) oxcc Interpersonal Safety Answer Date Record ed Physical Abuse Unrecognized value 02/23/2025 Verbal Abuse Unrecognized value 02/23/2025 Comments No Sex and Gender Information Value Date Recorded Sex Assigned at Not on file Legal Sex Female 4:48 PM EST Gender Identity Not on file Sexual Orientation Not on file Obstetrics History Last Filed Vital Signs Vital Sign Reading Time Taken Comments Blood Pressure 107/63 02/23/2025 10:07 AM EDT Pulse 80 02/23/2025 10:07 AM EDT Temperature 36.1 C (97 F) 02/23/2025 10:07 AM EDT Respiratory Rate 18 02/23/2025 10:07 AM EDT Oxygen Saturation 99% 02/23/2025 10:07 AM EDT Inhaled Oxygen Concentration - - Weight 93 kg (205 lb 0.4 oz) 03/08/2025 2:32 PM EDT Height 177.8 cm (5' 10 ) 03/08/2025 2:32 PM EDT Body Mass Index 29.42 03/08/2025 2:32 PM EDT Plan of Treatment Upcoming Encounters Date Type Department Care Team (Late st Contact Info) Description 05/24/2025 9:00 AM EST Office Visit Orthopedic [facility] [address] [phone] Lebron Zaldivar DPM [address] [facility] [address] [place] [address] Health Maintenance Due Date Last Done Comments Cervical Cancer Screening: Pap Smear 12/06/2008 HIV Screening 06/07/2024 Hepatitis C Screening 06/07/2024 Social Influencers of Health Screening 06/07/2024 Depression Screening 07/19/2024 COVID-19 Vaccine ( - season) 2025 Influenza Vaccine (#1) 2025 04/10/2019 DTaP,Tdap,and Td Vaccines (9 - Td or Tdap) 02/28/2029 02/28/2019, 12/08/2006, 01/01/2000, Additional history exists RSV Immunization Adult Patients (1 - 1-dose 75+ series) 12/06/2062 HIB Vaccines Completed 02/15/1990 IPV Vaccines Completed [...] 5 Years) and At-Risk Patients (6 to 49 Years) Aged Out No longer eligible based on patient's age to complete this topic RSV Immunization Patients Under 20 months Aged Out No longer eligible based on patient's age to complete this topic Varicella Vaccines Aged Out No longer eligible based on patient's age to complete this topic Medical Devices Implanted Type Area Wood Veneer Taper Device Identifier Shelf Expiration Date Model / Serial / Lot System Lapiplasty 4a Multiplanar Plating 3.9mm - Sn/A - [id number] Implanted:Qty: 1 on 02/23/2025 by Lebron Zaldivar DPM at [facility] Internal and External Fixation Right: [employer] 06/16/2028 SK39 / N/A / [id number] Screw Fastpitch High Lock 2.7x12/14mm - Sn/A - [id number] Implanted:Qty: 2 on 02/23/2025 by Lebron Zaldivar DPM at [facility] Internal and External Fixation Right: [employer] 09/28/2029 SD22 / N/A / [id number] Procedures Procedure Name Priority Date/Time Associated Diagnosis Comments XR FOOT 3+ VIEWS RIGHT Routine 5 10:22 AM EDT Post-operative state XR FOOT 3+ VIEWS RIGHT Routine 5 2:59 PM EDT Post-operative state XR FOOT 3+ VIEWS RIGHT Routine 5 10:04 AM EDT OXYGEN THERAPY, ADULT Routine 02/23/2025 9:23 AM EDT TISSUE EXAM Routine 02/23/2025 8:46 AM EDT Acquired hallux valgus of right foot TH AN LMA(NO CHARGE) Routine 02/23/2025 7:45 AM EDT ND ARTHRODESIS MIDTARSAL OR TARSOMETATARSAL SINGLE JOINT 02/23/2025 7:27 AM EDT Acquired hallux valgus of right foot Case Notes MINI C-ARM, LAPIPLASTY IMPLANTNo auth required from Last 3 Months Results * XR Foot 3+ Views Right (04/17/2025 10:22 AM EDT) Only the most recent of3 resultswithin the time period is included. Anatomical Region Laterality Modality Lower Extremities, Foot Right Computed Radiography Narrative 04/30/2025 12:57 PM EDT Right foot 3 views Still postop changes hardware intact Bone is well opposed reduction deformity maintained us Lebron Zaldivar DPM IMG XR PROCEDURES Final R esult * Tissue exam (02/23/2025 8:46 AM EDT) Final Diagnosis Bone, right foot-arthrodesis: -DEGENERATIVE OSTEOARTHROPATHY, CONSISTENT WITH HALLUX VALGUS / EXOSTOSIS 02/27/2025 11:11 AM EDT [facility] Gross Description A. Foot, Right, Bone: Labeled bone righ foot R . Received in formalin are three irregular, shavings of yellow indurated bone fragments ranging from 1.7 x 1.5 x 0.2 cm to 2.7 x 2.0 x 0.15 cm, which have minimal attached soft, turcios-pink tissue and a smooth white articular surface. The specimen is sectioned and a client service representative section from each portion of tissue is submitted in one cassette, three pieces, following decalcification. TS 02/27/2025 11:11 AM EDT [facility] Disclaimer Unless otherwise specified, all tissue is 10% NB formalin fixed and paraffin embedded. 02/27/2025 11:11 AM EDT [facility] Bone Structure of right foot / Unknown 02/23/2025 8:46 AM EDT 02/23/2025 10:14 AM EDT Lebron Zaldivar DPM LAB PATHOLOGY ORDERABLES Final Result [facility] [address] [place] [address], * TH AN LMA(NO CHARGE) (02/23/2025 7:45 AM EDT) Narrative Shy Valencia CRNA - 02/23/2025 7:45 AM EDT Shy Valencia CRNA 02/23/2025 7:46 AM General Information and Staff Patient location during procedure: OR Resident/ADVERTISING STRATEGIST: Shy Valencia CRNA Performed: resident/PATRICIO/CAA Performed by: Shy Valencia CRNA Authorized by: Rich Schmidt MD Intubation Airway not difficult Urgency: elective Final Airway Details Number of attempts at approach: 1 Number of other approaches attempted: 1 LMA Size: 4 LMA Type: Unique LMA Seal Pressure:20 Final airway type: LMA Indications and Patient Condition Indications for airway management: anesthesia and airway protection Spontaneous ventilation: present Sedation level: Yes Preoxygenated: yes Soft Tissue Damage: No Dentition Unchanged: Yes Patient position: sniffing MILS maintained throughout Mask difficulty assessment: 0 - not attempted Rich Schmidt MD ANESTHESIA ORDERABLES Final Re sult from Last 3 Months Insurance [employer] [facility] [place] [id number] [facility]) Care Teams Production Troubleshooter Relationship Specialty Start Date End Date Kassie Osorio MD [address] [place] [address] , [address] [facility] D/B/A: [facility] TIFFANY Monzon PCP - General Internal Medicine 06/06/24
== END 2025-05-03 13:35 | disposition home or self-care (01) ==
LOC: HO.HMCH 13:01
PROVIDERS: PCP Internal Medicine; Visit Provider Internal Medicine
DX: Z00.00 Encounter for general adult medical examination without abnormal findings (principal)

== ENCOUNTER → 2025-05-03 13:01 | Outpatient (BNVA) | payer BC, SELFPAY | PROVIDERS: PCP Internal Medicine; Visit Provider Internal Medicine | DX: Z00.00 Encounter for general adult medical examination without abnormal findings (principal); L72.9 Follicular cyst of the skin and subcutaneous tissue, unspecified | CPT/HCPCS: 96127 ==